=== PATIENT | female | born 1945 | race Caucasian/White ===

== ENCOUNTER → 2017-11-18 10:59 | Outpatient (CLI) | payer MEDICARE, OTHER, SELFPAY ==
[2017-11-18 12:14] LABS: AST(SGOT) 21 U/L (15-37); Alanine Aminotransfer ALT/SGPT 22 U/L (13-56); Albumin, Serum 3.8 g/dL (3.2-5.0); Alkaline Phosphatase 62 U/L (45-117); Bilirubin, Direct 0.18 mg/dL (0.00-0.30); Cholesterol 160 mg/dL (200); Globulin 3.5 g/dL (2.2-4.2); High Density Lipoprotein 73 mg/dL; Protein, Total 7.3 g/dL (6.4-8.2); Triglycerides 99 mg/dL; Very Low Density Lipoprotein 20 mg/dL (5-40)
== END ==
PROVIDERS: Family Provider Internal Medicine; PCP Internal Medicine; Visit Provider Internal Medicine Cardiovascular Disease
DX: I35.0 Nonrheumatic aortic (valve) stenosis (principal); I10 Essential (primary) hypertension
CPT/HCPCS: 36415; 80061; 80076

== ENCOUNTER → 2018-06-17 11:29 | Outpatient (CLI) | payer MEDICARE, OTHER, SELFPAY ==
--- NOTE | 2018-06-17 11:34 | RAD_ITS ---
STUDY: X-RAY - LUMBAR SPINE REASON FOR EXAM: Female, 72 years old. Low back pain. TECHNIQUE: 3 view(s) of the lumbar spine were obtained. COMPARISON: Radiographs of the lumbar spine dated February 20, 2014. FINDINGS: There is straightening of the normal lumbar lordosis. There is mild curvature of the lumbar spine with convexity towards the left. There is a normal alignment of the vertebrae. The bones are osteopenic. Patient has had a kyphoplasty of a compression fracture of L3. There appear to be mild compression fractures of L4, L5 and moderate compression fracture of L1. There are severe compression fracture of T12 with vertebral plana appearance. This is unchanged since the previous study. There is also mild compression fracture T11. There is multi-level degenerative disc disease with multi-level disc space narrowing. There is also vacuum disc phenomenon at several disc levels. There is moderately severe degenerative arthropathy of the facet joints of the lumbar spine. The patient has had a total right hip arthroplasty. The soft tissue structures are unremarkable. RAD/Lumbar Spine 2 or 3 Views IMPRESSION: 1. Osteoporosis. 2. Multiple compression fractures of the lumbar spine with kyphoplasty L3. 3. New compression fracture of L1 since previous radiographs. Electronically Signed: Laila Farley MD at 7:51 EDT , Service support ,
== END ==
PROVIDERS: Family Provider Internal Medicine; PCP Internal Medicine; Referring Provider Anesthesiology Pain Medicine; Visit Provider Anesthesiology Pain Medicine
DX: M54.9 Dorsalgia, unspecified (principal); M79.609 Pain in unspecified limb
CPT/HCPCS: 72100

== ENCOUNTER 2018-07-04 13:20 | Emergency (ER) | payer MEDICARE, OTHER, SELFPAY ==
[2018-07-04 13:21] VITALS: BP 166/91; PULSE 77; RESP 16; TEMP 36.9; O2SAT 98; BMI 37.9
--- NOTE | 2018-07-04 15:24 | ED.DCSUM_ITS ---
- ER Visit Summary Date of Service: 07/04/18 Chief Complaint: [Laceration right foot] History of Present Illness: The patient is a 72 F [presents the emergency department with a small laceration to her right foot that occurred last evening while she was shaving her legs. Patient states that initially she was able to get the bleeding stopped and this morning when she took the dressing off to continue to bleed. Patient presents to the ER for evaluation. Patient unsure of her last tetanus.] Physical Examination: [Right foot-patient has a punctate less than 2 mm laceration over the dorsal lateral aspect of the foot just inferior to the lateral malleolus that has minimal amount of blood oozing from it. The laceration is directly over a very small varicosity. Patient nervously intact. No signs of infection.] Test Results: [None indicated] Emergency Department Course and Treatment: [Patient had the wounds treated with silver nitrate stick to cauterize the small amount of bleeding. Good results were obtained and good hemostasis. Clean dressing was applied.] Treatment Plan: [Dressing will be applied. Follow-up with primary care physician as needed.] Disposition: Discharged home in stable condition [] Impression: [Laceration right foot-2 mm with silver nitrate cauterization] This note was generated with [employer] dictation software. It may contain incorrect words, spelling, and punctuation that were not noted in review of the chart prior to signing ED Disposition - Plan for ED Patient: Chief Complaint: Laceration Referrals: Hanna Rodriguez MD [Primary Care Provider] -
--- NOTE | 2018-07-04 15:24 | ED.DEP ---
ED Disposition - Plan for ED Patient: Chief Complaint: Laceration Instructions: ED Laceration Foot Referrals: Hanna Rodriguez MD [Primary Care Provider] - As Needed
[2018-07-04] MEDS: Diphth,Pertuss(Acell),Tet Vac 0.5 ML Vial IM (15:30)
[2018-07-04 15:46] VITALS: BP 122/94; PULSE 67; RESP 17; O2SAT 98
--- NOTE | 2018-07-04 15:46 | ED.RN ---
PATIENT AMBULATORY OUT OF ROOM WITHOUT DIFFICULTY, DECLINES WHEELCHAIR.
== END 2018-07-04 15:47 | disposition home or self-care (01) ==
LOC: ED 15:27
PROVIDERS: Emergency Provider Emergency Medicine; Family Provider Internal Medicine; PCP Internal Medicine
DX: S91.311A Laceration without foreign body, right foot, initial encounter (principal); I83.91 Asymptomatic varicose veins of right lower extremity; W45.8XXA Other foreign body or object entering through skin, initial encounter; Y93.E8 Activity, other personal hygiene; Y92.9 Unspecified place or not applicable; Y99.9 Unspecified external cause status; Z23 Encounter for immunization; E11.9 Type 2 diabetes mellitus without complications; I10 Essential (primary) hypertension; Z79.82 Long term (current) use of aspirin; Z79.899 Other long term (current) drug therapy
CPT/HCPCS: 12001; 90471; 90715; 99282; A4216

== ENCOUNTER → 2018-07-06 08:47 | Outpatient (CLI) | payer MEDICARE, OTHER, SELFPAY ==
--- NOTE | 2018-07-06 08:49 | ECHOD_ITS ---
Reason For Study: MURMUR Procedure This was a 2D Doppler, Color Flow transthoracic echocardiogram. Exam performed in department. Left Ventricle Normal LV size. Mild concentric left ventricular hypertrophy. Left ventricular systolic function is normal. The estimated ejection fraction is 60 %. No regional wall motion abnormalities noted. Atria The left atrium is mildly enlarged. The right atrium is mildly enlarged. Mitral Valve Normal mitral valve. Mild-Moderate (1-2+) eccentric mitral valve insufficiency. Tricuspid Valve Normal tricuspid valve. Mild (1+) tricuspid valve insufficiency. Pulmonary artery systolic pressure is 40 mmHg. Aortic Valve Trisinus/trileaflet aortic valve. Moderate focal aortic valve calcification. Peak aortic valve gradient 51 mmHg. Mean aortic valve gradient 39 mmHg. Moderate aortic stenosis. Calculated aortic valve area (continuity equation) is 1.1 cm2. Mild (1+) eccentric aortic valve insufficiency. Pulmonic Valve Normal pulmonic valve. Great Vessels Mildly dilated aortic root. The pulmonary artery is normal size. Normal inferior vena cava. Pericardium/Pleural No pericardial effusion. MMode/2D Measurements & Calculations LVIDd: 5.3 cm IVSd: 1.4 cm LVOT diam: 2.2 cm LVIDs: 3.3 cm LVPWd: 1.4 cm LVOT area: 3.7 cm2 RVDd: 3.4 cm FS: 38.0 % Ao root diam: 4.0 cm LAV(MOD-sp4): 76.1 ml LA A4 area: 22.9 cm2 RA A4 area: 24.5 cm2 Doppler Measurements & Calculations MV E max gopi: 119.1 cm/sec Lat Peak E' Gopi: 10.5 cm/sec Med Peak E' Gopi: 6.4 cm/sec MV A max gopi: 101.9 cm/sec E/E' lat: 11.3 E/E' med: 18.6 MV E/A: 1.2 Ao V2 max: 340.9 cm/sec AI max gopi: 438.0 cm/sec LV V1 max: 115.4 cm/sec Ao max P.5 mmHg AI max P.8 mmHg LV V1 max P.3 mmHg Ao V2 mean: 303.0 cm/sec AI dec slope: 294.0 cm/sec2 LV V1 mean P.4 mmHg Ao mean P.2 mmHg AI P1/2t: 436.4 msec LV V1 mean: 89.8 cm/sec Ao V2 VTI: 91.9 cm LV V1 VTI: 28.3 cm LAVONNE(I,D): 1.1 cm2 LAVONNE(V,D): 1.2 cm2 SV(LVOT): 103.6 ml PA V2 max: 96.5 cm/sec TR max gopi: 294.9 cm/sec TR max P.8 mmHg Interpretation Summary Normal LV size. Mild concentric left ventricular hypertrophy. Left ventricular systolic function is normal. The estimated ejection fraction is 60 %. The left atrium is mildly enlarged. Mild-Moderate (1-2+) eccentric mitral valve insufficiency. Moderate aortic stenosis. Calculated aortic valve area (continuity equation) is 1.1 cm2. Mild (1+) eccentric aortic valve insufficiency. Compared to prior study, there is no significant change. Ordering Physician: Krzysztof Bianchi Referring Physician: Hanna Rodriguez Performed By: Theresa Michelle RDCS, RVT
== END ==
PROVIDERS: Family Provider Internal Medicine; PCP Internal Medicine; Referring Provider Internal Medicine Cardiovascular Disease; Visit Provider Internal Medicine Cardiovascular Disease
DX: R01.1 Cardiac murmur, unspecified (principal); Z98.890 Other specified postprocedural states
CPT/HCPCS: 93306

== ENCOUNTER → 2018-07-15 15:54 | Outpatient (CLI) | payer MEDICARE, OTHER, SELFPAY ==
[2018-07-15 17:34] LABS: Amphetamine Urine VISTA NEGATIVE (<1000 ng/mL); Barbiturate Urine VISTA NEGATIVE (< 200 ng/mL); Benzodiazepine Urine VISTA NEGATIVE (< 200 ng/mL); Cocaine Urine VISTA NEGATIVE (< 300 ng/mL); Ecstacy Urine VISTA NEGATIVE (< 500 ng/mL); Methadone Urine VISTA NEGATIVE (< 300 ng/mL); PCP Urine VISTA NEGATIVE (< 25 ng/mL); THC Urine VISTA NEGATIVE (< 50 ng/mL); Vista UDS pH Range 6
== END ==
PROVIDERS: Family Provider Internal Medicine; PCP Internal Medicine; Referring Provider Anesthesiology Pain Medicine; Visit Provider Anesthesiology Pain Medicine
DX: F11.20 Opioid dependence, uncomplicated (principal)
CPT/HCPCS: 80307

== ENCOUNTER → 2020-04-21 08:49 | Outpatient (CLI) | payer MEDICARE, SELFPAY ==
[2020-03-30 10:42] VITALS: BMI 37.8
--- NOTE | 2020-04-21 08:50 | ECHOD_ITS ---
Reason For Study: Murmur Procedure This was a 2D Doppler, Color Flow transthoracic echocardiogram. Exam performed in department. Left Ventricle Normal LV size. Moderate concentric left ventricular hypertrophy. Left ventricular systolic function is normal. The estimated ejection fraction is 60 %. Stage 2 diastolic dysfunction. No regional wall motion abnormalities noted. Right Ventricle Normal RV size. Normal systolic function. Atria Normal left atrium. Normal right atrium. Mitral Valve Bileaflet diffuse mitral valve thickening. Mild-Moderate (1-2+) eccentric mitral valve insufficiency. Tricuspid Valve Normal tricuspid valve. Mild to moderate (1-2+) tricuspid valve insufficiency. Pulmonary artery systolic pressure is 50 mmHg. Aortic Valve Trisinus/trileaflet aortic valve. Moderate focal aortic valve calcification. Peak aortic valve gradient 70 mmHg. Mean aortic valve gradient 38 mmHg. Calculated aortic valve area (continuity equation) is 0.7 cm2. Severe aortic stenosis. Mild (1+) eccentric aortic valve insufficiency. Pulmonic Valve Normal pulmonic valve. Great Vessels Normal aortic root. The pulmonary artery is normal size. Normal inferior vena cava. Pericardium/Pleural No pericardial effusion. MMode/2D Measurements & Calculations LVIDd: 4.9 cm IVSd: 1.8 cm LVOT diam: 2.0 cm LVIDs: 3.0 cm LVPWd: 1.2 cm LVOT area: 3.2 cm2 RVDd: 4.4 cm FS: 39.1 % Ao root diam: 3.9 cm LAV(MOD-bp): 69.2 ml LA A4 area: 19.5 cm2 LA dimension: 4.1 cm LAV(MOD-bp) Indexed: 33.2 ml/m2 LAV(MOD-sp2): 75.2 ml LAV(MOD-sp4): 56.6 ml RA A4 area: 20.6 cm2 Time Measurements MV dec time: 0.26 sec Doppler Measurements & Calculations MV E max gopi: 114.7 cm/sec Lat Peak E' Gopi: 9.9 cm/sec Med Peak E' Gopi: 5.3 cm/sec MV A max gopi: 73.8 cm/sec E/E' lat: 11.6 E/E' med: 21.7 MV E/A: 1.6 MV V2 max: 130.5 cm/sec MV P1/2t max gopi: 129.4 cm/sec Ao V2 max: 419.3 cm/sec MV max P.8 mmHg MV P1/2t: 82.0 msec Ao max P.3 mmHg MV V2 mean: 73.5 cm/sec MV dec slope: 462.0 cm/sec2 Ao V2 mean: 287.3 cm/sec MV mean P.5 mmHg Ao mean P.9 mmHg MV V2 VTI: 34.7 cm MVA(P1/2t): 2.7 cm2 Ao V2 VTI: 97.8 cm MVA(VTI): 2.6 cm2 LAVONNE(I,D): 0.92 cm2 LAVONNE(V,D): 0.71 cm2 AI max gopi: 239.7 cm/sec LV V1 max: 93.6 cm/sec MR max gopi: 669.0 cm/sec AI max P.0 mmHg LV V1 max P.5 mmHg MR max P.0 mmHg LV V1 mean P.0 mmHg MR mean gopi: 477.7 cm/sec AI dec slope: 162.2 cm/sec2 LV V1 mean: 68.7 cm/sec MR mean P.9 mmHg AI P1/2t: 432.8 msec LV V1 VTI: 28.1 cm MR VTI: 237.3 cm SV(LVOT): 89.8 ml PA V2 max: 82.8 cm/sec TR max gopi: 337.1 cm/sec TR max P.4 mmHg Interpretation Summary Normal LV size. Moderate concentric left ventricular hypertrophy. Left ventricular systolic function is normal. The estimated ejection fraction is 60 %. Stage 2 diastolic dysfunction. Mean aortic valve gradient 38 mmHg. Calculated aortic valve area (continuity equation) is 0.7 cm2. Severe aortic stenosis. Compared to the previous the is worse Ordering Physician: Krzysztof Bianchi Referring Physician: Hanna Rodriguez Performed By: Rober Charles RCS
== END ==
PROVIDERS: PCP Internal Medicine; Referring Provider Internal Medicine Cardiovascular Disease; Visit Provider Internal Medicine Cardiovascular Disease
DX: I35.2 Nonrheumatic aortic (valve) stenosis with insufficiency (principal); R01.1 Cardiac murmur, unspecified
CPT/HCPCS: 93306

== ENCOUNTER → 2020-04-26 08:39 | Outpatient (CLI) | payer MEDICARE, SELFPAY ==
[2020-03-30 10:42] VITALS: BMI 37.8
--- NOTE | 2020-04-26 09:00 | RAD_ITS ---
STUDY: X-RAY CHEST REASON FOR EXAM: Female, 74 years old. Dyspnea TECHNIQUE: Frontal and lateral views of the chest COMPARISON: 02/27/15 FINDINGS: The lungs are clear. There are no pleural effusions. There is no pneumothorax. The heart is normal in size. The visualized osseous structures are within normal limits. RAD/Chest PA and Lateral IMPRESSION: No acute thoracic pathology. Electronically Signed: Jerad Andino, at 17:02 EDT Tel , Service support ,
[2020-04-26 09:26] LABS: Absolute Lymphocyte Count 1.19 X10^3/uL (0.83-4.51); Absolute Neutrophil Count 2.3 X10^3/uL (2.0-7.7); Basophil# 0.04 X10^3/uL; Eosinophil# 0.08 X10^3/uL; Hemoglobin 12.6 g/dL (12.0-15.0); Lymphocyte # 1.19 X10^3/ul (4.0); Lymphocyte % 29.4 % (19-41); Mean Corpuscular Hgb 34.4 pg (27.0-32.0); Mean Corpuscular Volume 98.4 fL (81-99); Mean Platelet Vol. 9.5 fl (6.2-12.0); Monocyte# 0.48 X10^3/uL; Monocyte% 11.9 % (0-10); NRBC Flagged by Analyzer 0 % (0-5); Neutrophil # 2.25 X10^3/uL (2.7-7.7); Neutrophil % 55.5 % (47-70); Platelet Count 186 K/mm3 (150-450); RBC Distribution Width CV 12.9 % (11.6-14.6); Red Blood Count 3.66 M/mm3 (4.2-5.4); White Blood Count 4.1 K/mm3 (4.4-11.0)
[2020-04-26 09:50] LABS: Anion Gap 5 (5-15); BUN 15 mg/dL (7-18); BUN/Creat Ratio 19.3 RATIO (10-20); Calcium,Total 9.1 mg/dL (8.5-10.1); Chloride 102 mmol/L (98-107); Creatinine, Serum 0.78 mg/dL (0.55-1.02); EST Glomerular Filtration Rate 78 mL/min (>60); Est Glom Filt Rate - Afr Amer 94 mL/min (>60); Glucose 90 mg/dL (74-106); Potassium 3.6 mmol/L (3.5-5.1); Sodium Level 138 mmol/L (136-145)
== END ==
PROVIDERS: PCP Internal Medicine; Referring Provider Internal Medicine Cardiovascular Disease; Visit Provider Internal Medicine Cardiovascular Disease
DX: I49.3 Ventricular premature depolarization (principal); E78.5 Hyperlipidemia, unspecified; I10 Essential (primary) hypertension; I35.2 Nonrheumatic aortic (valve) stenosis with insufficiency
CPT/HCPCS: 36415; 71046; 80048; 85025

== ENCOUNTER 2020-05-01 08:47 | Day surgery (SDC) | payer MEDICARE, SELFPAY ==
[2020-03-30 10:42] VITALS: BMI 37.8
[2020-04-28 08:37] VITALS: BMI 37.8
--- NOTE | 2020-05-01 08:01 | HP_ITS ---
[facility] History of Present Illness Details: RAFIA SANCHEZ, is a 74 F who presents to the office today for a follow- up visit. You do remember that she lost her approximately 7 months ago and is still grieving. She is a lady with a history of hypertension, normal coronary arteries, moderate aortic stenosis with a valve area of 1.1 cm?. She last had an echocardiogram performed in June 2018 and was noted to have an ejection fraction of 60% and a peak mean gradient of 51 and 39 mmHg respectively across the aortic valve. She returns for routine follow-up visit she denies any chest pain or shortness of breath or paroxysmal nocturnal dyspnea pedal edema. She has not had any neck arm or jaw discomfort to suggest angina. She has not had any claudication as well. You do remember she continues to have discoloration of her feet. Her physical exam today demonstrates clear lung pardo regular rate and rhythm a 2/6 systolic murmur noted left sternal border and no pedal edema. Intake Vital Signs 03/30/20 Height 5 ft 5 in 03/30/20 Weight: 227 lb 03/30/20 BMI 37.8 03/30/20 BP 150/87 H 03/30/20 Respiration 16 03/30/20 Pulse 68 03/30/20 Pulse Oximetry (%) 100 03/30/20 BMI 37.5 Intake Visit Reasons: 9 M FU Allergies captopril [From Capoten] Allergy (Verified 03/30/20 10:42) Unknown diclofenac Allergy (Verified 03/30/20 10:42) Unknown naproxen Adverse Reaction (Verified 03/30/20 10:42) Nausea Medications Hydrochlorothiazide 25 mg PO DAILY 02/20/14 [History Confirmed 03/30/20] Multivitamins,Therapeutic [Multivitamin] 1 tab PO DAILY 02/20/14 [History Confirmed 03/30/20] Aspirin [Aspirin, Baby] 81 mg PO DAILY@0800 02/27/15 [History Confirmed 03/30/20] Atorvastatin Calcium [Lipitor] 20 mg PO QHS 02/27/15 [History Confirmed 03/30/20] Cholecalciferol (VIT D3) [Vitamin D] 1,000 unit PO BID 02/27/15 [History Confirmed 03/30/20] Cyanocobalamin [Vitamin B12] 250 mcg PO DAILY@0800 02/27/15 [History Confirmed 03/30/20] Omeprazole [Prilosec] 20 mg PO DAILY 02/27/15 [History Confirmed 03/30/20] Lactobacillus Rhamnosus GG [Culturelle] 1 ea PO DAILY 03/13/15 [History Confirmed 03/30/20] traMADol [Ultram (G)] 50 mg PO Q12H PRN PRN 03/13/15 [History Confirmed 03/30/20] Metoprolol Succinate 25 mg PO BID 03/21/17 [History Confirmed 03/30/20] Potassium Chloride [K-Dur] 10 meq PO DAILY #30 tab 04/30/17 [Rx Confirmed 03/30/20] hydrochlorothiazide 12.5 mg tablet 12.5 mg PO DAILY 07/15/19 [History Confirmed 03/30/20] losartan 50 mg tablet 50 mg PO BID tab 07/15/19 [History Confirmed 03/30/20] Ejection fraction %: 60 to 64 PFSH Medical History Nonrheumatic aortic (valve) stenosis with insufficiency (Chronic) Essential (primary) hypertension (Chronic) Hyperlipidemia (Chronic) Premature ventricular contractions (Chronic) Obesity (Chronic) Obstructive sleep apnea (Chronic) Peripheral vascular occlusive disease (Chronic) Stasis dermatitis without varicosities (Chronic) Cellulitis of leg without foot, left (Resolved) Abnormal electrocardiogram (Inactive) Surgical History History of D&C (Resolved) History of hand surgery (Resolved) History of left heart catheterization (Resolved 03/14/15) History of right hip replacement (Resolved) History of tubal ligation (Resolved) Family History Father CVA (cerebral vascular accident) Hypertension Atrial fibrillation Congestive heart failure Mother , in her 90's, pt of Dr. Bianchi Hypertension CVA (cerebral vascular accident) Atrial fibrillation Congestive heart failure Brother , age 60 Atrial fibrillation Congestive heart failure Colon cancer Sister CAD (coronary artery disease) Sister , age 65 CAD (coronary artery disease) Hypertension S/P CABG (coronary artery bypass graft) History of heart valve replacement Sister Atrial fibrillation Other Family history of CVA Family history of hyperlipidemia Family history of hypertension Social History (Updated 03/30/20 @ 11:[address] Krzysztof Bianchi MD) Smoking Status: Never smoker alcohol intake: current caffeine: Yes Type: carbonated beverages Number of servings: 1 ROS Const Const: Negative for fatigue, weakness, headache(s), frequent falls, difficulty sleeping or excessive sweating Eyes Eyes: Negative for loss of peripheral vision, transient loss of vision, blurry vision, double vision or tunnel vision ENT ENT: Negative for headache(s), dizziness, Nosebleed/epistaxis or balance problems Cardio Chest Pain: No Palpitations: No Edema: None Muscle aches with walking: None Resp Respiratory: Negative for SOB with activity, SOB at rest, SOB orthopnea\SOB lying down, Cough or paroxysmal nocturnal dyspnea GI GI: Negative nausea, vomiting, heartburn or black,tarry stools : Negative for hematuria Musc Musc: Negative for muscle aches/ myalgia, muscle weakness, joint pain or balance problems Skin Skin: Negative non-healing lesions, rash or unusual bruising Neuro Neuro: Positive for lightheadedness (occasionally when moving to quick); negative for dizziness, near syncope, syncope, orthostatic symptoms, frequent falls, headache(s), weakness, blurry vision, double vision or lack of coordination Andrea Hematologic/Lymphatic: Negative for easy bleeding or easy bruising Endo Endo: Negative for fatigue, excessive sweating or increased thirst/drinking Psych Psych: Positive for depression (Has episodes, was in a grief class); negative for anxiety Allergy Allergy/Immunology: Negative for hives, Negative for rash Cardiology Exam Const Appearance: cooperative, healthy appearing, no acute distress, well developed and well groomed Nutritional Appearance: average body habitus and well nourished Orientation: alert, awake and oriented x3 Head Head: normal to inspection, normocephalic and atraumatic Ears: hearing grossly normal bilaterally and external ears normal Nose: external nose normal, nares normal, nasal mucous membranes and turbinates normal, septum normal, no nasal discharge Face and Sinus: face symmetric Mouth: oral mucosae normal, tongue normal, oropharynx normal and moist mucous membranes Teeth and gingiva: dentition normal Throat: posterior oropharynx normal, tonsils normal and uvula midline Eyes General: appearance normal, both eyes and all related structures Eyelids: eyelids normal Conjunctivae: conjunctivae normal Pupils: PERRL, normal by confrontation and accommodation normal EOM: EOM intact bilaterally Neck Neck: normal visual inspection, trachea midline and no JVD JVD: +5 Carotids: normal carotid upstroke and bounding pulses Chest Chest inspection: normal inspection of the chest, symmetric chest movement and normal respiratory effort Auscultation: Bilateral: Clear to Auscultation Cardio Palpation: normal PMI Rate: regular rate Rhythm: regular rhythm Heart sounds: S1 normal, S2 normal and normal, physiologic split S2; negative rub, gallop or murmur Murmur: Grade 2/6, early systolic and LLSB GI GI: normal to inspection, soft, no hepatosplenomegaly and bowel sounds present Neuro General: alert, awake, oriented x3, gait normal, moves all extremities and no focal sensory deficit Skin Skin: no rashes or lesions noted Extremities Pulses: Normal: Right Femoral Pulse, Left Femoral Pulse, Right Dorsalis Pedis Pulse, Left Dorsalis Pedis Pulse, Right Posterior Tibial Pulse, Left Posterior Tibial Pulse, Right Radial Pulse, Left Radial Pulse Lower Extremity Edema: None: Bilateral Musculoskel Musculoskeletal: No joint tenderness Psych Psychological: normal affect Assessment & Plan 1. Nonrheumatic aortic (valve) stenosis with insufficiency I35.2 Plan She does have at least moderate aortic stenosis. I would like us to repeat her echocardiogram at this time to be able to see what her gradients are. I have talked to her about a possible TAVR if her gradients are significant and she will be interested in the above. Orders Orders: Echo Complete Today 2. Essential (primary) hypertension I10 Plan Her blood pressure is mildly elevated at this time but with her aortic valve I would like to keep her medications the same without making any changes. She tells me that she had some blood work done through your office and you be following her electrolytes. 3. Pure hypercholesterolemia E78.00 Plan She does have a history of hyperlipidemia. She is on medium intensity statin which will be continued. No other changes will be made. Thank you for allowing me to participate in her care. 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) Coding Level of Care Code Off vis,est,level 3 Diagnoses Nonrheumatic aortic (valve) stenosis with insufficiency I35.2 Essential (primary) hypertension I10 Pure hypercholesterolemia E78.00 ??Hyperlipidemia type: pure hypercholesterolemia Coding Level of Care Code Off vis,est,level 3 Diagnoses Nonrheumatic aortic (valve) stenosis with insufficiency I35.2 Essential (primary) hypertension I10 Pure hypercholesterolemia E78.00 ??Hyperlipidemia type: pure hypercholesterolemia Supplemental Info Supplemental Information Labs LDL Cholesterol 67 mg/dL (0-130) 11/18/17 HDL Cholesterol 73 mg/dL (40-) 11/18/17 Triglycerides 99 mg/dL (-199) 11/18/17 VLDL Cholesterol 20 mg/dL (5-40) 11/18/17 Diagnostics Electrocardiogram 04/30/17 Echocardiogram 07/06/18
--- NOTE | 2020-05-01 10:04 | CL.D_ITS ---
Patient Name: RAFIA SANCHEZ Study Date: 05/01/2020 Performing: Krzysztof Bianchi MD Ht: 65 inches 165 cm : 1945 Wt: 227.4 lbs 103 kg Age: 74 Gender: female BSA: 2.09 PROCEDURE(S) PERFORMED [id number] CLINICAL PROFILE AND INDICATIONS Indications: Valvular Disease Heart Failure: None Stress/Imaging Stress/Image Study Performed: No CAD Presentations: No Sxs, no angina. No Sxs, no angina. CONCLUSIONS Normal coronary arteries There is severe aortic stenosis, normal coronary arteries, and upper normal pulmonary artery pressure s by echocardiogram. RECOMMENDATIONS Surgery consult for Valve Replacement surgery For TAVR DESCRIPTION OF PROCEDURE The patient arrived to the procedure lab. The risks and benefits of the procedure as well as a full d escription of our services here and current unavailability of surgical backup were fully explained to the patient and/or their significant other prior to the catheterization. The Timeout was completed, verifying the correct patient and procedure. The patient's procedural site was prepped and draped in the usual fashion. Local anesthetic was given subcutaneously to right radial region with Lidocaine 2% . Using a modified Seldinger technique, arterial access was obtained via the right radial artery, a 6 Fr sheath was inserted. Left Coronary Artery selective angiography was performed in multiple views u sing a 5 Fr. 4.0 [place] catheter. Right Coronary Artery selective angiography was then performed in mu ltiple views using a 5 Fr. 4.0 [place] catheter.The arterial sheath was pulled and a TR Band was applie d for hemostasis 11cc air CORONARY ANGIOGRAPHY DOMINANCE: Co- Dominant LEFT HEART ASSESSMENT Left Ventricular Ejection Fraction: by Echo 60 % Normal LV wall motion Normal Left Ventricular systolic function LEFT MAIN: Angiographically normal LEFT ANTERIOR DESCENDING ARTERY: Angiographically normal CIRCUMFLEX ARTERY: Angiographically normal RIGHT CORONARY ARTERY: Angiographically normal VALVE FINDINGS: Aortic Valve Calcification - severe Aortic Valve Stenosis - severe Aortic Valve Insufficiency: Grade 1 COMPLICATIONS No Complications PROCEDURE MEDICATIONS Fentanyl 50 mcg IV Versed 1 mg IV Versed 1 mg IV Oxygen: 2 L/min via nasal cannula Heparin diluted in 23cc Heparinized saline. Patient given 10cc IA of this solution. 05/01/2020 09:43: 34 Verapamil 2.5mg, Ntg 100mcgs, 2000 units of Heparin diluted in 23cc Heparinized saline. Patient give n 10cc IA of this solution. 05/01/2020 09:43:34 SUMMARY OF HEMODYNAMIC DATA Time AIR REST ECG 09:13:55 AO 149/85 (111) SA 09:45:39 Signed By Krzysztof Bianchi MD On 05/01/2020 10:03:47 Krzysztof Bianchi MD
== END 2020-05-01 11:40 | disposition home or self-care (01) ==
LOC: CLSP 08:47
PROVIDERS: PCP Internal Medicine; Referring Provider Internal Medicine Cardiovascular Disease; Visit Provider Internal Medicine Cardiovascular Disease
DX: I35.2 Nonrheumatic aortic (valve) stenosis with insufficiency (principal); I25.118 Atherosclerotic heart disease of native coronary artery with other forms of angina pectoris; I10 Essential (primary) hypertension; G47.33 Obstructive sleep apnea (adult) (pediatric); E78.5 Hyperlipidemia, unspecified; E66.9 Obesity, unspecified; R01.1 Cardiac murmur, unspecified; I49.3 Ventricular premature depolarization; I73.9 Peripheral vascular disease, unspecified; I99.8 Other disorder of circulatory system; R94.31 Abnormal electrocardiogram [ECG] [EKG]; I87.2 Venous insufficiency (chronic) (peripheral); R42 Dizziness and giddiness; F32.9 Major depressive disorder, single episode, unspecified; Z79.899 Other long term (current) drug therapy; Z79.82 Long term (current) use of aspirin; Z68.37 Body mass index [BMI] 37.0-37.9, adult; Z82.49 Family history of ischemic heart disease and other diseases of the circulatory system
CPT/HCPCS: 93005; 93454; 99152; 99153; J7040; Q9967; C1769; C1894

== ENCOUNTER → 2020-05-10 10:21 | Outpatient (CLI) | payer MEDICARE, SELFPAY ==
[2020-04-28 08:37] VITALS: BMI 37.8
[2020-05-10 11:44] LABS: Amphetamine Urine VISTA NEGATIVE (<1000 ng/mL); Barbiturate Urine VISTA NEGATIVE (< 200 ng/mL); Benzodiazepine Urine VISTA NEGATIVE (< 200 ng/mL); Cocaine Urine VISTA NEGATIVE (< 300 ng/mL); Ecstacy Urine VISTA NEGATIVE (< 500 ng/mL); Methadone Urine VISTA NEGATIVE (< 300 ng/mL); PCP Urine VISTA NEGATIVE (< 25 ng/mL); THC Urine VISTA NEGATIVE (< 50 ng/mL); Vista UDS pH Range 7
== END ==
PROVIDERS: PCP Internal Medicine; Referring Provider Anesthesiology Pain Medicine; Visit Provider Anesthesiology Pain Medicine
DX: F11.20 Opioid dependence, uncomplicated (principal)
CPT/HCPCS: 80307

== ENCOUNTER → 2020-05-18 10:49 | Outpatient (CLI) | payer MEDICARE, SELFPAY ==
[2020-04-28 08:37] VITALS: BMI 37.8
[2020-05-18 12:01] LABS: EST Glomerular Filtration Rate 87 mL/min (>60); Est Glom Filt Rate - Afr Amer 106 mL/min (>60)
== END ==
PROVIDERS: PCP Internal Medicine; Referring Provider Internal Medicine Cardiovascular Disease; Visit Provider Internal Medicine Cardiovascular Disease
DX: I11.9 Hypertensive heart disease without heart failure (principal); I27.21 Secondary pulmonary arterial hypertension; I35.2 Nonrheumatic aortic (valve) stenosis with insufficiency; I49.3 Ventricular premature depolarization; E78.5 Hyperlipidemia, unspecified
CPT/HCPCS: 36415; 82565

== ENCOUNTER → 2020-09-27 10:54 | Outpatient (CLI) | payer MEDICARE, SELFPAY ==
[2020-04-28 08:37] VITALS: BMI 37.8
== END ==
PROVIDERS: PCP Internal Medicine; Referring Provider Physician Assistant Medical; Visit Provider Physician Assistant Medical
DX: I97.89 Other postprocedural complications and disorders of the circulatory system, not elsewhere classified (principal); I49.3 Ventricular premature depolarization; Z95.3 Presence of xenogenic heart valve
CPT/HCPCS: 93225; 93226

== ENCOUNTER → 2020-10-20 11:25 | Outpatient (CLI) | payer MEDICARE, SELFPAY ==
[2020-10-20 08:11] VITALS: BMI 37.8
[2020-10-20 12:07] LABS: Anion Gap 5 (5-15); BUN 22 mg/dL (7-18); BUN/Creat Ratio 25.3 RATIO (10-20); Calcium,Total 8.9 mg/dL (8.5-10.1); Chloride 107 mmol/L (98-107); Creatinine, Serum 0.87 mg/dL (0.55-1.02); EST Glomerular Filtration Rate 68 mL/min (>60); Est Glom Filt Rate - Afr Amer 82 mL/min (>60); Glucose 86 mg/dL (74-106); Potassium 3.7 mmol/L (3.5-5.1); Sodium Level 140 mmol/L (136-145)
== END ==
PROVIDERS: PCP Internal Medicine; Referring Provider Internal Medicine Cardiovascular Disease; Visit Provider Internal Medicine Cardiovascular Disease
DX: I10 Essential (primary) hypertension (principal); E78.5 Hyperlipidemia, unspecified; I35.2 Nonrheumatic aortic (valve) stenosis with insufficiency; Z95.3 Presence of xenogenic heart valve
CPT/HCPCS: 36415; 80048

== ENCOUNTER 2020-11-08 10:19 | Day surgery (SDC) | payer MEDICARE, SELFPAY ==
[2020-10-20 08:11] VITALS: BMI 37.8
[2020-11-02 10:52] VITALS: BMI 37.8
--- NOTE | 2020-11-08 06:02 | HP_ITS ---
[facility] History of Present Illness Details: RAFIA SANCHEZ, is a 74 F who presents to the office today for a follow- up visit. She is a lady with a history of hypertension aortic valve disease who underwent cardiac catheterization and repeat echocardiogram which demonstrated severe aortic valve stenosis. She underwent a TAVR procedure in May 2020. Postoperatively she was noted to have atrial fibrillation and was started on amiodarone and Eliquis. She had a Holter monitor performed in September of this year which demonstrated 70% atrial fibrillation episodes with an average heart rate of 103 bpm. Her amiodarone and metoprolol were increased. Her last post TAVR echocardiogram had demonstrated preserved ejection fraction of 68%. She feels well though she has noted the irregularities in her heart rate. She has been compliant with her medications. She has had no dizziness or diaphoresis no near syncope or syncope. Her physical exam demonstrates clear lung pardo irregular rate and rhythm and no pedal edema. Intake Vital Signs 10/20/20 Height 5 ft 5 in 10/20/20 Weight: 227 lb 10/20/20 BMI 37.8 10/20/20 BP 156/87 H 10/20/20 Respiration 18 10/20/20 Pulse 102 H 10/20/20 Pulse Oximetry (%) 100 Intake Visit Reasons: 6 M FU Allergies captopril [From Capoten] Allergy (Verified 10/20/20 08:11) Unknown diclofenac Allergy (Verified 10/20/20 08:11) Unknown naproxen Adverse Reaction (Verified 10/20/20 08:11) Nausea Medications Hydrochlorothiazide 25 mg PO DAILY 02/20/14 [History Confirmed 10/20/20] Multivitamins,Therapeutic [Multivitamin] 1 tab PO DAILY 02/20/14 [History Confirmed 10/20/20] Aspirin [Aspirin, Baby] 81 mg PO DAILY@0800 02/27/15 [History Confirmed 10/20/20] Atorvastatin Calcium [Lipitor] 20 mg PO QHS 02/27/15 [History Confirmed 10/20/20] Cholecalciferol (VIT D3) [Vitamin D] 1,000 unit PO BID 02/27/15 [History Confirmed 10/20/20] Cyanocobalamin [Vitamin B12] 250 mcg PO DAILY@0800 02/27/15 [History Confirmed 10/20/20] Omeprazole [Prilosec] 20 mg PO DAILY 02/27/15 [History Confirmed 10/20/20] Lactobacillus Rhamnosus GG [Culturelle] 1 ea PO DAILY 03/13/15 [History Confirmed 10/20/20] traMADol [Ultram (G)] 50 mg PO Q12H PRN PRN 03/13/15 [History Confirmed 10/20/20] Potassium Chloride [K-Dur] 10 meq PO DAILY #30 tab 04/30/17 [Rx Confirmed 10/20/20] apixaban 5 mg tablet 5 mg PO BID 09/13/20 [History Confirmed 10/20/20] losartan 50 mg tablet 50 mg PO DAILY tab 09/13/20 [History Confirmed 10/20/20] nitrofurantoin monohydrate/macrocrystals 100 mg capsule 100 mg PO BID 09/13/20 [History Confirmed 10/20/20] amiodarone 200 mg tablet 200 mg PO DAILY #37 tab 09/28/20 [Rx Confirmed 10/20/20] metoprolol tartrate 50 mg tablet 50 mg PO BID #180 tab 09/28/20 [Rx Confirmed 10/20/20] Ejection fraction %: 65 to 70 PFSH Medical History Postoperative atrial fibrillation (Chronic 06/05/20) Nonrheumatic aortic (valve) stenosis with insufficiency (Chronic) Essential (primary) hypertension (Chronic) Hyperlipidemia (Chronic) Premature ventricular contractions (Chronic) Obesity (Chronic) Obstructive sleep apnea (Chronic) Peripheral vascular occlusive disease (Chronic) Stasis dermatitis without varicosities (Chronic) Cellulitis of leg without foot, left (Resolved) Left ventricular diastolic dysfunction (Resolved) Secondary pulmonary arterial hypertension (Resolved) Abnormal electrocardiogram (Inactive) Surgical History History of aortic valve replacement with bioprosthetic valve (Chronic 06/05/20) History of D&C (Resolved) History of hand surgery (Resolved) History of left heart catheterization (Resolved 05/01/20) History of right hip replacement (Resolved) History of tubal ligation (Resolved) Family History Father CVA (cerebral vascular accident) Hypertension Atrial fibrillation Congestive heart failure Mother , in her 90's, pt of Dr. Bianchi Hypertension CVA (cerebral vascular accident) Atrial fibrillation Congestive heart failure Brother , age 60 Atrial fibrillation Congestive heart failure Colon cancer Sister CAD (coronary artery disease) Sister , age 65 CAD (coronary artery disease) Hypertension S/P CABG (coronary artery bypass graft) History of heart valve replacement Sister Atrial fibrillation Other Family history of CVA Family history of hyperlipidemia Family history of hypertension Social History (Updated 10/20/20 @ 11:[address] Krzysztof Bianchi MD) Smoking Status: Never smoker alcohol intake: current caffeine: Yes Type: carbonated beverages Number of servings: 1 ROS Const Const: Negative for fatigue, weakness, headache(s), frequent falls, difficulty sleeping or excessive sweating Eyes Eyes: Negative for loss of peripheral vision, transient loss of vision, blurry vision, double vision or tunnel vision ENT ENT: Negative for headache(s), dizziness, Nosebleed/epistaxis or balance problems Cardio Chest Pain: No Palpitations: No Edema: None Muscle aches with walking: None Resp Respiratory: Positive for SOB with activity; negative for SOB at rest, SOB orthopnea\SOB lying down, Cough or paroxysmal nocturnal dyspnea GI GI: Negative nausea, vomiting, heartburn or black,tarry stools : Negative for hematuria Musc Musc: Negative for muscle aches/ myalgia, muscle weakness, joint pain or balance problems Skin Skin: Negative non-healing lesions, rash or unusual bruising Neuro Neuro: Negative for dizziness, lightheadedness, near syncope, syncope, orthostatic symptoms, frequent falls, headache(s), weakness, blurry vision, double vision or lack of coordination Andrea Hematologic/Lymphatic: Negative for easy bleeding or easy bruising Endo Endo: Negative for fatigue, excessive sweating or increased thirst/drinking Psych Psych: Negative for anxiety or depression Allergy Allergy/Immunology: Negative for hives, Negative for rash Cardiology Exam Const Appearance: cooperative, healthy appearing, no acute distress, well developed and well groomed Nutritional Appearance: average body habitus and well nourished Orientation: alert, awake and oriented x3 Head Head: normal to inspection, normocephalic and atraumatic Ears: hearing grossly normal bilaterally and external ears normal Nose: external nose normal, nares normal, nasal mucous membranes and turbinates normal, septum normal, no nasal discharge Face and Sinus: face symmetric Mouth: oral mucosae normal, tongue normal, oropharynx normal and moist mucous membranes Teeth and gingiva: dentition normal Throat: posterior oropharynx normal, tonsils normal and uvula midline Eyes General: appearance normal, both eyes and all related structures Eyelids: eyelids normal Conjunctivae: conjunctivae normal Pupils: PERRL, normal by confrontation and accommodation normal EOM: EOM intact bilaterally Neck Neck: normal visual inspection, trachea midline and no JVD JVD: +5 Carotids: normal carotid upstroke and bounding pulses Chest Chest inspection: normal inspection of the chest, symmetric chest movement and normal respiratory effort Auscultation: Bilateral: Clear to Auscultation Cardio Palpation: normal PMI Rate: regular rate Rhythm: irregular rhythm Heart sounds: S1 normal, S2 normal and normal, physiologic split S2; negative rub, gallop or murmur GI GI: normal to inspection, soft, no hepatosplenomegaly and bowel sounds present Neuro General: alert, awake, oriented x3, gait normal, moves all extremities and no focal sensory deficit Skin Skin: no rashes or lesions noted Extremities Pulses: Normal: Right Femoral Pulse, Left Femoral Pulse, Right Dorsalis Pedis Pulse, Left Dorsalis Pedis Pulse, Right Posterior Tibial Pulse, Left Posterior Tibial Pulse, Right Radial Pulse, Left Radial Pulse Lower Extremity Edema: None: Bilateral Musculoskel Musculoskeletal: No joint tenderness Psych Psychological: normal affect Assessment & Plan 1. Postoperative atrial fibrillation I97.89; I48.91 Plan She currently has persistent atrial fibrillation. She has been anticoagulated for at least 3 weeks. With her preserved ejection fraction I would recommend that we consider DC cardioversion. Risk benefits alternatives have been explained to her she understands and agrees to proceed we will arrange this as an outpatient. Orders Orders: Cardioversion Today 12 Lead EKG Today 2. History of aortic valve replacement with bioprosthetic valve Z95.3 TAVR w/ #29 Benitez S 3 Valve 06/05/2020 Plan She is status post successful TAVR procedure. Her last echocardiogram demonstrated a peak mean gradient of 26 over 13 mmHg with normal diastolic. No wall motion abnormalities were noted. She will continue with the current medical therapy. 3. Essential (primary) hypertension I10 Plan She does have a history of hypertension. Her blood pressure appears to be under fair control as judged by her blood pressure measurements at home. I would not suggest that we make any changes to the above therapies. Thank you for allowing me to participate in the care of your patient. Please don't hesitate to call if any issues arise. 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
--- NOTE | 2020-11-08 12:11 | CARDIOVERS ---
Cardioversion Cardioversion: DC cardioversion. 74-year-old lady status post TAVR with persistent atrial fibrillation on anticoagulation. Patient was seen by Dr. Goncalves of the critical care division. Informed consent was obtained. Anterior posterior pads were applied. The patient was then administered 60 mg of intravenous propofol. 200 J of synchronized biphasic energy were applied with prompt reversal to sinus rhythm. Patient tolerated the procedure well. Conclusion: Successful DC cardioversion from atrial fibrillation to sinus rhythm. Continue current medications Continue anticoagulation Follow-up per office protocol.
--- NOTE | 2020-11-08 14:23 | PCM.OP.PRO ---
Problem List (1) Essential (primary) hypertension Status: Chronic (2) History of aortic valve replacement with bioprosthetic valve Status: Chronic Comment: TAVR w/ #29 Benitez S 3 Valve 06/05/2020 (3) Hyperlipidemia Status: Chronic Qualifiers: (4) Nonrheumatic aortic (valve) stenosis with insufficiency Status: Chronic (5) Postoperative atrial fibrillation Status: Chronic (6) Premature ventricular contractions Status: Chronic Procedure Report Date of Procedure: 11/08/20 - Conscious sedation CONSCIOUS SEDATION REPORT BRIEF HISTORY OF PRESENT ILLNESS: The patient is a 74-year-old female who presented to [facility] for an elective outpatient cardioversion due to underlying atrial fibrillation. The patient reports no PO intake since midnight. The patient does not have a history of obstructive sleep apnea. The patient reports no history of smoking and COPD. The patient denies any recent constitutional symptoms such as fevers, chills, nausea or vomiting. The patient denies previous anesthetic complications. Patient did take Eliquis on the day of the procedure. Patient's last known ejection fraction was 68%. PHYSICAL EXAMINATION: VITAL SIGNS: Reviewed and were acceptable. GENERAL: The patient is a female, in no apparent distress, speaking in full sentences. HEENT: Normocephalic, atraumatic. Mucous membranes are moist and pink. Good mouth opening noted. Trachea is midline. Good neck mobility. MP II CHEST: S1, S2 irregularly irregular. No murmurs, rubs or gallops were noted. LUNGS: Clear to auscultation bilaterally without appreciable wheezes, rales or rhonchi. ABDOMEN: Soft, nontender, nondistended. Positive bowel sounds. EXTREMITIES: There is no clubbing, cyanosis or edema. ASA Class: II DESCRIPTION OF PROCEDURE: After confirmation of informed consent, the patient's anesthesia plan was reviewed in detail. Propofol was chosen. Risks and benefits were reviewed and the patient agreed to proceed. At 12:01 PM, the patient was given 40 mg of propofol. The patient required a total of 60 mg of propofol throughout the procedure to achieve appropriate sedation. The patient achieved an appropriate level of sedation and received 1 attempt synchronized cardioversion, at [address] Bianchi at the bedside. This was successful in achieving normal sinus rhythm. The patient was monitored until 12:16 PM, at which time the patient reached their baseline mental status and function. The patient tolerated the procedure well. COMPLICATIONS: None ESTIMATED BLOOD LOSS: None RECOMMENDATIONS: Okay to recover in usual fashion. [id number]: Other Procedure See Report - [id number] -15 minutes of conscious sedation
== END 2020-11-08 13:15 | disposition home or self-care (01) ==
LOC: CLSP 10:26
PROVIDERS: PCP Internal Medicine; Referring Provider Internal Medicine Cardiovascular Disease; Visit Provider Internal Medicine Cardiovascular Disease
DX: I48.19 Other persistent atrial fibrillation (principal); I49.3 Ventricular premature depolarization; I35.2 Nonrheumatic aortic (valve) stenosis with insufficiency; I97.89 Other postprocedural complications and disorders of the circulatory system, not elsewhere classified; I99.8 Other disorder of circulatory system; I10 Essential (primary) hypertension; E78.5 Hyperlipidemia, unspecified; G47.33 Obstructive sleep apnea (adult) (pediatric); E66.9 Obesity, unspecified; Z79.01 Long term (current) use of anticoagulants; Z79.82 Long term (current) use of aspirin; Z79.899 Other long term (current) drug therapy; Z95.3 Presence of xenogenic heart valve; Z96.641 Presence of right artificial hip joint
CPT/HCPCS: 92960; 93005; J7040

== ENCOUNTER → 2021-04-05 15:29 | Outpatient (CLI) | payer MEDICARE, SELFPAY ==
[2021-02-01 07:52] VITALS: BMI 37.9
--- NOTE | 2021-04-05 15:32 | RAD_ITS ---
STUDY: X-RAY - LUMBAR SPINE REASON FOR EXAM: Female, 75 years old. FALL/pain TECHNIQUE: 3 view(s) of the lumbar spine were obtained. COMPARISON: Prior lumbar spine series of 06/17/2018 FINDINGS: Normal lumbar lordosis. Moderate levoscoliosis centered at L2. No substantial change in alignment from prior exam. Stable chronic compression deformities of T11, T12 and L1. Normal vertebral body height at L2. Mild chronic loss of height at L3 status post vertebroplasty. Mild loss of height at L4 and L5 stable from prior exam. Advanced diffuse degenerative disc narrowing and spondylitic endplate changes. Generalized facet arthrosis. The soft tissue structures are unremarkable. RAD/Lumbar Spine 2 or 3 Views IMPRESSION: Straightening of the lumbar spine and a moderate levoscoliosis without substantial change in alignment from prior exam. Negative for acute compression deformity of the lumbar spine. Chronic compression deformities as described above stable from for prior exam. Status post is stable vertebroplasty at L2. Electronically Signed: Latasha Fields MD at 15:58 EDT , Service support ,
--- NOTE | 2021-04-05 15:32 | RAD_ITS ---
STUDY: X-RAY - THORACIC SPINE REASON FOR EXAM: Female, 75 years old. FALL TECHNIQUE: 2 view(s) of the thoracic spine were obtained. COMPARISON: None. FINDINGS: Normal kyphosis of the thoracic spine. There is no substantial scoliosis. There is demineralization of the thoracic spine with endplate spondylosis. There is multilevel disc space narrowing of the thoracic spine. Loss of right 3 lower dorsal vertebrae. Prior aortic valve replacement. RAD/Thoracic Spine 2 Views IMPRESSION: Loss of height of 3 lower dorsal vertebrae. Electronically Signed: Jake Yan MD at 14:17 EDT , Service support ,
== END ==
PROVIDERS: PCP Internal Medicine; Referring Provider Anesthesiology Pain Medicine; Visit Provider Anesthesiology Pain Medicine
DX: M54.5 Low back pain (principal); M54.6 Pain in thoracic spine
CPT/HCPCS: 72070; 72100

== ENCOUNTER 2022-01-19 07:58 | Emergency (ER) | payer MEDICARE, SELFPAY ==
[2022-01-19 07:59] VITALS: BP 185/76; PULSE 62; RESP 14; TEMP 36.1; O2SAT 97; BMI 36.6
--- NOTE | 2022-01-19 08:15 | EDS_ITS ---
HPI <Dr. Xiao Edouard MD - Last Filed: 01/19/22 10:32> History of Present Illness Chief Complaint: Lower Extremity Injury <BOLA NEGRO - Last Filed: 01/19/22 10:24> History of Present Illness Informant: patient Onset/Context/Timing Onset: Yesterday Context: Gradual Onset Timing: Continuous Current Severity: 07/01 Maximum Severity: 07/01 Narrative Narrative: Patient presents secondary to right knee pain that began yesterday. 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 Patient states then that she had difficulty getting out of the car and bearing weight on that leg. Patient states that the pain continues today despite taking tramadol at 0730. Patient states pain is 10 out of 10, and while able to bend knee minimally, this also is very painful. Prior similar symptoms: No Recent Illness/Hospitalization: No PFSH <Dr. Xiao Edouard MD - Last Filed: 01/19/22 10:32> PFS Medical History (Updated 01/19/22 @ 10:24 by BOLA NEGRO) Abnormal electrocardiogram Cellulitis of leg without foot, left Essential (primary) hypertension Hyperlipidemia Knee sprain Left ventricular diastolic dysfunction Nonrheumatic aortic (valve) stenosis with insufficiency Obesity Obstructive sleep apnea Paroxysmal atrial fibrillation Peripheral vascular occlusive disease Postoperative atrial fibrillation (06/05/20) Premature ventricular contractions Secondary pulmonary arterial hypertension Stasis dermatitis without varicosities Home Medications multivitamin with folic acid 1 tab PO DAILY 02/20/14 [History Last Taken Unknown] aspirin 81 mg PO DAILY@0800 02/27/15 [History Last Taken 11/08/20] atorvastatin 20 mg PO QHS 02/27/15 [History Last Taken Unknown] cholecalciferol (vitamin D3) 1,000 unit PO BID 02/27/15 [History Last Taken Unknown] cyanocobalamin (vitamin B-12) 250 mcg PO DAILY@0800 02/27/15 [History Last Taken Unknown] omeprazole 20 mg PO DAILY 02/27/15 [History Last Taken 11/08/20] Lactobacillus rhamnosus GG 1 ea PO DAILY 03/13/15 [History Last Taken Unknown] apixaban 5 mg tablet 5 mg PO BID 09/13/20 [History Last Taken 11/08/20] amlodipine 2.5 mg tablet 2.5 mg PO DAILY #90 tab 02/01/21 [Rx Last Taken Unknown] losartan 100 mg tablet 100 mg PO DAILY #90 tab 02/01/21 [Rx Last Taken Unknown] metoprolol tartrate 50 mg tablet 50 mg PO BID #180 tab 10/24/21 [Rx Last Taken Unknown] amiodarone 200 mg tablet 200 mg PO DAILY #90 tab 10/29/21 [Rx Last Taken Unknown] hydrochlorothiazide 25 mg tablet 37.5 mg PO DAILY tab 12/11/21 [History Last Taken Unknown] tramadol 50 mg tablet 50 mg PO DAILY tab 12/11/21 [History Last Taken Unknown] hydrocodone-acetaminophen 1 tab PO Q6H PRN 3 Days #10 tab 01/19/22 [Rx Last Taken Unknown] Allergy/AdvReac Type Severity Reaction Status Date / Time captopril [From Capoten] Allergy Unknown Verified 01/19/22 08:02 diclofenac Allergy Unknown Verified 01/19/22 08:02 naproxen AdvReac Nausea Verified 01/19/22 08:02 Family History Father CVA (cerebral vascular accident) Hypertension Atrial fibrillation Congestive heart failure Mother , in her 90's, pt of Dr. Bianchi Hypertension CVA (cerebral vascular accident) Atrial fibrillation Congestive heart failure Brother , age 60 Atrial fibrillation Congestive heart failure Colon cancer Sister CAD (coronary artery disease) Sister , age 65 CAD (coronary artery disease) Hypertension S/P CABG (coronary artery bypass graft) History of heart valve replacement Sister Atrial fibrillation Other Family history of CVA Family history of hyperlipidemia Family history of hypertension Surgical History History of aortic valve replacement with bioprosthetic valve (06/05/20) History of cardioversion (11/08/20) History of D&C History of hand surgery History of left heart catheterization (05/01/20) History of right hip replacement History of tubal ligation Social History Smoking Status: Never smoker alcohol intake: current caffeine: Yes Type: carbonated beverages Number of servings: 1 <BOLA NEGRO - Last Filed: 01/19/22 10:24> ROS ED Constitutional Constitutional ED: Denies chills, fever(s) or sweats Eyes Eyes: Denies change in vision ENT ENT ED: Denies ear pain, rhinorrhea or sore throat Cardiovascular Cardiovascular: Denies chest pain or palpitations Respiratory/Chest Respiratory/Chest: Denies cough or dyspnea Gastrointestinal Gastrointestinal: Denies abdominal pain, diarrhea, nausea or vomiting Genitourinary Genitourinary ED: Denies dysuria Musculoskeletal Musculoskeletal: Reports systems reviewed and no addt'l complaints, except as do cumented, numbness and tingling Integumentary Denies rash Neurologic Neurologic: Denies headache(s) or weakness Psychiatric Psychiatric: Denies depression Endocrine Endocrinology: Denies polyuria EXAM <Dr. Xiao Edouard MD - Last Filed: 01/19/22 10:32> Physical Exam Const Vital Signs: 01/19/22 07:59 Temperature 96.9 F L Temperature Source Temporal Pulse Rate 62 Respiratory Rate 14 Blood Pressure 185/76 H Blood Pressure Mean 112 Pulse Ox 97 Oxygen Delivery Method Room Air <BOLA MARKY - Last Filed: 01/19/22 10:24> Physical Exam Const Vital Signs: 01/19/22 07:59 Temperature 96.9 F L Temperature Source Temporal Pulse Rate 62 Respiratory Rate 14 Blood Pressure 185/76 H Blood Pressure Mean 112 Pulse Ox 97 Oxygen Delivery Method Room Air Positive well nourished and well developed General Appearance ED: well developed HEENT Reports moist mucous membranes Negative for trauma or tenderness Eyes PERRL and EOMs intact bilaterally Neck no lymphadenopathy and supple Chest Wall inspection of chest normal and palpation of chest normal Resp normal respiratory effort and clear to auscultation bilaterally Cardio regular rate and regular rhythm Heart Sounds: murmur GI normal to inspection, nondistended, normoactive bowel sounds and non-tender Palpation: soft Back/Spine no CVA tenderness Extremity Right Lower Extremity: knee joint inspection (No overlying erythema.), palpation (Nonpitting edema.), ROM (Limited range of motion.) and neurovascular exam (Sensation intact. Dorsalis pedis and posterior tibial pulses 2+.) Neuro oriented x3 Sensorium / Orientation: alert Psych mental status grossly normal Skin no rashes or lesions noted [facility] <Dr. Xiao Edouard MD - Last Filed: 01/19/22 10:32> MDM Radiography Diagnostic Testing: Clinical Impression(s) from Imaging Studies Knee X-Ray 01/19/22 08:40 IMPRESSION: Degenerative arthrosis. Large joint effusion. Electronically Signed: Ad Husain MD at 9:03 EDT , Treatment and Re-Evaluation Narrative: Patient seen and evaluated with [employer] student. I personally interviewed and examined the patient. I was involved in all aspects of patient's orders, interpretation of results, and treatment. Patient presents secondary to right knee pain and swelling. Patient states she was working her part-time job yesterday for approximate 4 hours. She is on her feet a lot. Following this she went to get dinner and sat in her car to eat. When she went to get out of her car she had significant pain and swelling in her right knee. She got out her 's old walker and use that to help her ambulate around the house. She is on tramadol regularly secondary to chronic back pain. She took a dose this morning but states it did not significantly help the pain. Patient sitting upright in bed no acute distress. Head and neck examination unremarkable. Heart regular rate and rhythm. Lung sounds are clear. Abdomen is soft nontender. Right lower extremity examination reveals no tenderness at the hip. She has mild tenderness diffusely around the right knee with small effusion. No excessive erythema or warmth. No ecchymosis. Good distal pulses. Decreased range of motion at the knee secondary to pain. Right knee x-rays obtained and consistent with joint effusion. Arthritic changes appreciated. Radiologist interpretation also reviewed. Patient received 1 tab of West here for pain control. She be placed in an Migue wrap for light compression. She will be written for West and can take this in place of her tramadol over the next couple days. She will use the walker to help her get around. She will follow-up with orthopedics and her pain management doctor as needed. Return instructions provided <BOLA NEGRO - Last Filed: 01/19/22 10:24> [facility] Narrative Medical decision making narrative: Right knee x-ray ordered. Radiography Diagnostic Testing: Clinical Impression(s) from Imaging Studies Knee X-Ray 01/19/22 08:40 IMPRESSION: Degenerative arthrosis. Large joint effusion. Electronically Signed: Ad Husain MD at 9:03 EDT Reading Location ID and State: [facility] / [place] , Service support , Treatment and Re-Evaluation Narrative: On reevaluation, patient reports that her pain is decreased to 8 out of 10 and was able to maneuver from wheelchair to bathroom more easily. X-ray report discussed with patient and family at bedside. Migue wrap of right knee ordered. Patient will be discharged with prescription for West and given referral information for [facility] orthopedic. Patient states that she has a walker at home to use and verbalizes understanding of supportive care Discharge Plan Triage Chief Complaint: Lower Extremity Injury ED Provider: Xiao Edouard Dx/Rx/DC Orders Clinical Impression: Effusion of knee joint right Instructions: ED Knee Effusion Prescriptions: New hydrocodone-acetaminophen 5-325 mg tablet 1 tab PO Q6H PRN (Reason: pain) 3 Days Qty: 10 RF: 0 No Action Eliquis 5 mg tablet 5 mg PO BID RF: 0 losartan 100 mg tablet 100 mg PO DAILY Qty: 90 RF: 3 multivitamin with folic acid 1 TABLET tablet 1 tab PO DAILY RF: 0 hydrochlorothiazide 25 mg tablet 37.5 mg PO DAILY RF: 0 atorvastatin 20 MG tablet 20 mg PO QHS RF: 0 cyanocobalamin (vitamin B-12) 500 MCG tablet 250 mcg PO DAILY@0800 RF: 0 omeprazole 20 MG capsule 20 mg PO DAILY RF: 0 aspirin 81 MG tablet,chewable 81 mg PO DAILY@0800 RF: 0 cholecalciferol (vitamin D3) 1,000 UNIT tablet 1,000 unit PO BID RF: 0 Lactobacillus rhamnosus GG 1 EACH capsule 1 ea PO DAILY RF: 0 tramadol 50 mg tablet 50 mg PO DAILY RF: 0 amlodipine 2.5 mg tablet 2.5 mg PO DAILY Qty: 90 RF: 3 metoprolol tartrate 50 mg tablet 50 mg PO BID Qty: 180 RF: 3 amiodarone 200 mg tablet 200 mg PO DAILY Qty: 90 RF: 3 Primary Care Provider: Hanna Rodriguez Referrals: Lei Ferrara MD [NON-STAFF] - As Needed Hanna Rodriguez MD [Primary Care Provider] - Disposition Disposition: Home, Self Care
[2022-01-19] MEDS: HYDROcodone Bitartrate/Apap 5/325 Tablet PO (08:27)
--- NOTE | 2022-01-19 08:40 | RAD_ITS ---
STUDY: X-RAY - RIGHT KNEE REASON FOR EXAM: Female, 76 years old. PAIN TECHNIQUE: 4 view(s) of the knee. COMPARISON: None. FINDINGS: There is demineralization of the visualized distal femur. There is demineralization of the tibia and fibula. Normal proximal tibiofibular articulation. There is no demonstrated fracture. There is mild degenerative arthrosis of the medial femorotibial compartment. There is mild degenerative arthrosis of the lateral femorotibial compartment. There is moderate degenerative arthrosis of the patellofemoral articulation. There is a large volume joint effusion. Chondrocalcinosis of the menisci. The soft tissue structures are unremarkable. RAD/Knee 4 or More Views IMPRESSION: Degenerative arthrosis. Large joint effusion. Electronically Signed: Ad Husain MD at 9:03 EDT ,
[2022-01-19 10:45] VITALS: BP 146/57; PULSE 72; RESP 16; O2SAT 96
--- NOTE | 2022-01-22 15:58 | CASEMGMT ---
Addendum entered by Trina Sheppard 01/22/22 16:13: DIEUDONNE ROBELS received call back from patient. Patient states she is doing better a little bit everyday. Patient states she was able to fill prescription without any issues. Patient states she has scheduled appt with ortho. Patient had no further questions or concerns at this time. Original Note: ED follow-up phone call: DIEUDONNE ROBLES attempted to completed phone call. No answer, voice message left with return contact information.
== END 2022-01-19 10:46 | disposition home or self-care (01) ==
PROVIDERS: Emergency Provider Emergency Medicine; PCP Internal Medicine; Visit Provider Emergency Medicine
DX: M25.461 Effusion, right knee (principal); I27.21 Secondary pulmonary arterial hypertension; I48.0 Paroxysmal atrial fibrillation; I10 Essential (primary) hypertension; E78.5 Hyperlipidemia, unspecified; G47.33 Obstructive sleep apnea (adult) (pediatric); I35.0 Nonrheumatic aortic (valve) stenosis; E66.9 Obesity, unspecified; Z79.82 Long term (current) use of aspirin; Z79.01 Long term (current) use of anticoagulants; Z79.899 Other long term (current) drug therapy
CPT/HCPCS: 73564; 99283

== ENCOUNTER 2022-04-07 08:31 | Emergency (ER) | payer MEDICARE, SELFPAY ==
[2022-04-07 08:32] VITALS: BP 168/80; PULSE 68; RESP 14; TEMP 36.1; O2SAT 99; BMI 34.6
--- NOTE | 2022-04-07 09:27 | RAD_ITS ---
STUDY: X-RAY - RIGHT KNEE REASON FOR EXAM: Female, 76 years old. pain TECHNIQUE: 5 view(s) of the knee. COMPARISON: None. FINDINGS: Normal visualized distal femur. Normal visualized proximal tibia and fibula. Normal proximal tibiofibular articulation. There is mild degenerative arthrosis of the medial femorotibial compartment. There is mild degenerative arthrosis of the lateral femorotibial compartment. Chondrocalcinosis of the medial and lateral compartments. There is mild degenerative arthrosis of the patellofemoral articulation. Serpiginous opacities project in the lateral soft tissues. RAD/Knee 4 or More Views IMPRESSION: 1. Small joint effusion. Degenerative changes with chondrocalcinosis. 2. Lateral soft tissue varicose veins. Electronically Signed: Boyd King MD ([place]) at 10:02 EDT ,
--- NOTE | 2022-04-07 09:27 | ED.VIS.LOWEX ---
HPI History of Present Illness Chief Complaint: Lower Extremity Injury Narrative Narrative: 76-year-old female presenting with right knee pain. She states she does have some chronic issues with her right knee. Usually she is ambulatory and does not require anything more than her baseline tramadol and Tylenol. She states he was standing in the kitchen 2 days ago and took a step and after couple steps she felt sharp pain in the lateral aspect of her right knee. She denies any direct trauma. She states the pain radiates down her leg on the lateral aspect. Patient reports that it does make a clicking sound when she walks from time to time since her injury. No numbness. [facility] Medical History Abnormal electrocardiogram Cellulitis of leg without foot, left Essential (primary) hypertension Hyperlipidemia Knee sprain Left ventricular diastolic dysfunction Nonrheumatic aortic (valve) stenosis with insufficiency Obesity Obstructive sleep apnea Paroxysmal atrial fibrillation Peripheral vascular occlusive disease Postoperative atrial fibrillation (06/05/20) Premature ventricular contractions Secondary pulmonary arterial hypertension Stasis dermatitis without varicosities Home Medications multivitamin with folic acid 400 mcg tablet 1 tab PO DAILY 02/20/14 [History Last Taken Unknown] aspirin 81 mg chewable tablet 81 mg PO DAILY@0800 02/27/15 [History Last Taken 11/08/20] atorvastatin 20 mg tablet 20 mg PO QHS 02/27/15 [History Last Taken Unknown] cholecalciferol (vitamin D3) 25 mcg (1,000 unit) tablet 1,000 unit PO BID 02/27/15 [History Last Taken Unknown] cyanocobalamin (vitamin B-12) 500 mcg tablet 250 mcg PO DAILY@0800 02/27/15 [History Last Taken Unknown] omeprazole 20 mg capsule,delayed release 20 mg PO DAILY 02/27/15 [History Last Taken 11/08/20] Lactobacillus rhamnosus GG 10 billion cell capsule 1 ea PO DAILY 03/13/15 [History Last Taken Unknown] apixaban 5 mg tablet (Eliquis) 5 mg PO BID 09/13/20 [History Last Taken 11/08/20] amiodarone 200 mg tablet 200 mg PO DAILY #90 tabs 10/29/21 [Rx Last Taken Unknown] hydrochlorothiazide 25 mg tablet 37.5 mg PO DAILY 12/11/21 [History Last Taken Unknown] tramadol 50 mg tablet 50 mg PO DAILY Pain 12/11/21 [History Last Taken Unknown] hydrocodone-acetaminophen 5-325mg 5mg-325mg 1 tab PO Q6H PRN pain 3 days #10 tabs 01/19/22 [Rx Last Taken Unknown] amlodipine 2.5 mg tablet 2.5 mg PO DAILY #90 tabs 02/05/22 [Rx Last Taken Unknown] losartan 100 mg tablet 100 mg PO DAILY #90 tabs 02/05/22 [Rx Last Taken Unknown] metoprolol tartrate 50 mg tablet 50 mg PO BID #180 tabs 02/06/22 [Rx Last Taken Unknown] hydrocodone-acetaminophen 5-325mg 5mg-325mg 1 tab PO Q6H PRN pain 3 days #10 tabs 04/07/22 [Rx Last Taken Unknown] Allergy/AdvReac Type Severity Reaction Status Date / Time captopril [From Capoten] Allergy Unknown Verified 04/07/22 08:33 diclofenac Allergy Unknown Verified 04/07/22 08:33 naproxen AdvReac Nausea Verified 04/07/22 08:33 Family History Father CVA (cerebral vascular accident) Hypertension Atrial fibrillation Congestive heart failure Mother , in her 90's, pt of Dr. Bianchi Hypertension CVA (cerebral vascular accident) Atrial fibrillation Congestive heart failure Brother , age 60 Atrial fibrillation Congestive heart failure Colon cancer Sister CAD (coronary artery disease) Sister , age 65 CAD (coronary artery disease) Hypertension S/P CABG (coronary artery bypass graft) History of heart valve replacement Sister Atrial fibrillation Other Family history of CVA Family history of hyperlipidemia Family history of hypertension Surgical History History of aortic valve replacement with bioprosthetic valve (06/05/20) History of cardioversion (11/08/20) History of D&C History of hand surgery History of left heart catheterization (05/01/20) History of right hip replacement History of tubal ligation Social History Smoking Status: Never smoker alcohol intake: current caffeine: Yes Type: carbonated beverages Number of servings: 1 ROS ROS ED Constitutional Constitutional ED: Denies chills, fever(s) or sweats Eyes Eyes: Denies change in vision ENT ENT ED: Denies ear pain, rhinorrhea or sore throat Cardiovascular Cardiovascular: Denies chest pain or palpitations Respiratory/Chest Respiratory/Chest: Denies cough or dyspnea Gastrointestinal Gastrointestinal: Denies abdominal pain, diarrhea, nausea or vomiting Genitourinary Genitourinary ED: Denies dysuria Musculoskeletal Musculoskeletal: Reports other Details: Right knee pain Integumentary Denies rash Neurologic Neurologic: Denies headache(s) or weakness Psychiatric Psychiatric: Denies depression Endocrine Endocrinology: Denies polyuria EXAM Physical Exam Const Vital Signs: 04/07/22 08:32 Temperature 97.0 F L Temperature Source Temporal Pulse Rate 68 Respiratory Rate 14 Blood Pressure 168/80 H Blood Pressure Mean 109 Pulse Ox 99 Oxygen Delivery Method Room Air Positive well nourished General Appearance ED: NAD HEENT Reports moist mucous membranes Resp normal respiratory effort and no retractions Cardio regular rate and regular rhythm Extremity Extremity Narrative: Tenderness palpation lateral aspect of the right knee over the joint line. No ligamentous laxity. There is pain with varus strain. No patellar tenderness. Right knee extensor mechanism is intact. Neuro oriented x3 and CN's II-XII intact bilaterally Sensorium / Orientation: alert Psych mental status grossly normal Skin no wounds MDM MDM MDM Narrative Medical decision making narrative: Patient medicated with [place] for knee pain. I suspect she might have a meniscal tear based on her history and exam. X-ray of the right knee shows no acute fracture or subluxation. There is a small joint effusion on my interpretation. Patient use ice and elevation. She is given an Migue wrap here. She will follow-up with her primary care doctor or orthopedics to ensure resolution. Impression: 1. Right knee strain Lab Data Attestation: I reviewed the patient's lab results. Radiography Diagnostic Testing: Clinical Impression(s) from Imaging Studies Knee X-Ray 04/07/22 09:27 IMPRESSION: 1. Small joint effusion. Degenerative changes with chondrocalcinosis. 2. Lateral soft tissue varicose veins. Electronically Signed: Boyd King MD ([place]) at 10:02 EDT Reading Location ID and State: [facility] / [place] , Service support , Discharge Plan Triage Chief Complaint: Lower Extremity Injury ED Provider: Finesse Howell Dx/Rx/DC Orders Instructions: ED Meniscal Injury Knee Poss, ED Knee Effusion Prescriptions: New hydrocodone-acetaminophen 5-325 mg tablet 1 tab PO Q6H PRN (Reason: pain) 3 Days Qty: 10 0RF No Action Eliquis 5 mg tablet 5 mg PO BID multivitamin with folic acid 1 TABLET tablet 1 tab PO DAILY Label Comments: SUPPLEMENT hydrochlorothiazide 25 mg tablet 37.5 mg PO DAILY Label Comments: BP atorvastatin 20 MG tablet 20 mg PO QHS Label Comments: CHOLESTEROL cyanocobalamin (vitamin B-12) 500 MCG tablet 250 mcg PO DAILY@0800 Label Comments: SUPPLEMENT omeprazole 20 MG capsule 20 mg PO DAILY Label Comments: GERD aspirin 81 MG tablet,chewable 81 mg PO DAILY@0800 Label Comments: [facility] cholecalciferol (vitamin D3) 1,000 UNIT tablet 1,000 unit PO BID Label Comments: SUPPLEMENT Lactobacillus rhamnosus GG 1 EACH capsule 1 ea PO DAILY Label Comments: PROBIOTIC tramadol 50 mg tablet 50 mg PO DAILY Label Comments: PAIN hydrocodone-acetaminophen 5-325 mg tablet 1 tab PO Q6H PRN (Reason: pain) 3 Days Qty: 10 0RF amiodarone 200 mg tablet 200 mg PO DAILY Qty: 90 3RF losartan 100 mg tablet 100 mg PO DAILY Qty: 90 3RF amlodipine 2.5 mg tablet 2.5 mg PO DAILY Qty: 90 3RF metoprolol tartrate 50 mg tablet 50 mg PO BID Qty: 180 3RF Primary Care Provider: Hanna Rodriguez Referrals: Hanna Rodriguez MD [Primary Care Provider] - Disposition Disposition: Home, Self Care
[2022-04-07] MEDS: HYDROcodone Bitartrate/Apap 5/325 Tablet PO (09:53)
[2022-04-07 11:33] VITALS: BP 149/65; RESP 18
== END 2022-04-07 11:40 | disposition home or self-care (01) ==
PROVIDERS: Emergency Provider Student in an Organized Health Care Education/Training Program; PCP Internal Medicine; Visit Provider Student in an Organized Health Care Education/Training Program
DX: S83.91XA Sprain of unspecified site of right knee, initial encounter (principal); I27.21 Secondary pulmonary arterial hypertension; M25.461 Effusion, right knee; E78.5 Hyperlipidemia, unspecified; I10 Essential (primary) hypertension; Z79.899 Other long term (current) drug therapy; Z79.82 Long term (current) use of aspirin
CPT/HCPCS: 73564; 99283

== ENCOUNTER → 2023-01-13 | Outpatient (CLI) | payer MEDICARE, SELFPAY ==
[2023-01-13 12:52] LABS: BNP,B-Type NATRIURETIC PEPTIDE 545.5 pg/mL (0-100)
[2023-01-13 13:10] LABS: Anion Gap 3 (5-15); BUN 16 mg/dL (7-18); BUN/Creat Ratio 20.3 RATIO (10-20); Calcium,Total 9.5 mg/dL (8.5-10.1); Chloride 97 mmol/L (98-107); Creatinine, Serum 0.79 mg/dL (0.55-1.02); EST Glomerular Filtration Rate 76 mL/min (>60); Est Glom Filt Rate - Afr Amer 92 mL/min (>60); Glucose 93 mg/dL (74-106); Potassium 3.6 mmol/L (3.5-5.1); Sodium Level 132 mmol/L (136-145); T4 Free Direct 1.57 ng/dL (0.76-1.46); Thyroid Stim Hormone (TSH) 2.05 uIU/mL (0.358-3.74)
== END | disposition home or self-care (01) ==
LOC: LAB 12:10
PROVIDERS: PCP Internal Medicine; Referring Provider Nurse Practitioner Family; Visit Provider Nurse Practitioner Family
DX: R06.00 Dyspnea, unspecified (principal); I48.0 Paroxysmal atrial fibrillation; Z95.3 Presence of xenogenic heart valve; E78.5 Hyperlipidemia, unspecified; Z79.899 Other long term (current) drug therapy
CPT/HCPCS: 36415; 80048; 83880; 84439; 84443

== ENCOUNTER → 2023-07-15 | Outpatient (CLI) | payer MEDICARE, SELFPAY ==
--- NOTE | 2023-07-15 08:56 | ECHOD_ITS ---
Reason For Study: S/P TAVR Procedure This was a 2D Doppler, Color Flow transthoracic echocardiogram. Exam performed in department. Left Ventricle Normal LV size. Mild concentric left ventricular hypertrophy. Left ventricular systolic function is normal. The estimated ejection fraction is 60 %. No regional wall motion abnormalities noted. Right Ventricle Normal RV size. Normal systolic function. Atria The left atrium is moderately enlarged. The right atrium is moderately enlarged. Mitral Valve Normal mitral valve. Mild-Moderate (1-2+) eccentric mitral valve insufficiency. Tricuspid Valve Normal tricuspid valve. Mild (1+) tricuspid valve insufficiency. Pulmonary artery systolic pressure is 40 mmHg. Aortic Valve Peak aortic valve gradient 21 mmHg. Mean aortic valve gradient 13 mmHg. Mild (1+) eccentric aortic valve insufficiency. Bioprosthetic aortic valve. Great Vessels Mild to moderately dilated aortic root. The pulmonary artery is normal size. Normal inferior vena cava. Pericardium/Pleural No pericardial effusion. MMode/2D Measurements & Calculations LVIDd: 5.1 cm IVSd: 1.2 cm Ao root diam: 4.4 cm LVIDs: 3.4 cm LVPWd: 1.2 cm RVDd: 4.3 cm FS: 33.8 % LAV(MOD-bp): 107.8 ml LVAd ap4: 39.9 cm2 SV(MOD-sp4): 99.4 ml LAV(MOD-bp) Indexed: 53.1 ml/m2 LVLd ap4: 8.0 cm LAV(MOD-sp2): 104.9 ml EDV(MOD-sp4): 159.4 ml LAV(MOD-sp4): 100.9 ml EDV(sp4-el): 168.8 ml LVAs ap4: 21.8 cm2 LVLs ap4: 6.7 cm ESV(MOD-sp4): 60.0 ml ESV(sp4-el): 60.3 ml EF(MOD-sp4): 62.4 % EF(sp4-el): 64.3 % SV(sp4-el): 108.5 ml LA dimension(2D): 4.4 cm LA A4 area: 29.2 cm2 RA A4 area: 24.0 cm2 TAPSE: 2.6 cm Doppler Measurements & Calculations Lat Peak E' Gopi: 12.4 cm/sec Med Peak E' Gopi: 6.0 cm/sec Ao V2 max: 230.1 cm/sec Ao max P.2 mmHg Ao V2 mean: 174.0 cm/sec Ao mean P.0 mmHg Ao V2 VTI: 57.9 cm AV (velocity ratio): 0.55 AI max gopi: 415.9 cm/sec LV V1 max: 123.4 cm/sec MR max gopi: 606.8 cm/sec AI max P.3 mmHg LV V1 max P.1 mmHg MR max P.3 mmHg LV V1 mean P.3 mmHg MR mean gopi: 503.4 cm/sec AI dec slope: 176.9 cm/sec2 LV V1 mean: 86.5 cm/sec MR mean P.2 mmHg AI P1/2t: 688.9 msec LV V1 VTI: 31.8 cm MR VTI: 246.2 cm TR max gopi: 352.2 cm/sec TR max P.5 mmHg ECHO/Echo Complete Interpretation Summary Normal LV size. Mild concentric left ventricular hypertrophy. The left atrium is moderately enlarged. The right atrium is moderately enlarged. Bioprosthetic aortic valve. Mild (1+) eccentric aortic valve insufficiency. Left ventricular systolic function is normal. The estimated ejection fraction is 60 %. Recommend repeat in 6 months due to the post TAVR aortic regurgitation Ordering Physician: Rob Gan Referring Physician: Hanna Rodriguez Performed By: Theresa Michelle RDCS, RVT
== END | disposition home or self-care (01) ==
LOC: CVS 08:55
PROVIDERS: PCP Internal Medicine; Referring Provider Nurse Practitioner Family; Visit Provider Nurse Practitioner Family
DX: I35.2 Nonrheumatic aortic (valve) stenosis with insufficiency (principal); Z95.3 Presence of xenogenic heart valve
CPT/HCPCS: 93306

== ENCOUNTER → 2023-08-05 | Outpatient (CLI) | payer MEDICARE, SELFPAY ==
[2023-08-05 11:16] LABS: Amphetamine Urine VISTA NEGATIVE (<1000 ng/mL); Barbiturate Urine VISTA NEGATIVE (< 200 ng/mL); Benzodiazepine Urine VISTA NEGATIVE (< 200 ng/mL); Cocaine Urine VISTA NEGATIVE (< 300 ng/mL); Ecstacy Urine VISTA NEGATIVE (< 500 ng/mL); Methadone Urine VISTA NEGATIVE (< 300 ng/mL); PCP Urine VISTA NEGATIVE (< 25 ng/mL); THC Urine VISTA NEGATIVE (< 50 ng/mL); Vista UDS pH Range 8
== END | disposition home or self-care (01) ==
PROVIDERS: PCP Internal Medicine; Referring Provider Anesthesiology Pain Medicine; Visit Provider Anesthesiology Pain Medicine
DX: F11.20 Opioid dependence, uncomplicated (principal)
CPT/HCPCS: 80307

== ENCOUNTER → 2024-01-01 | Outpatient (CLI) | payer MEDICARE, SELFPAY ==
--- NOTE | 2024-01-01 12:46 | ECHOD_ITS ---
Version 2 Reason For Study: Procedure This was a 2D Doppler, Color Flow transthoracic echocardiogram. Exam performed in department. Left Ventricle Normal LV size. Mild concentric left ventricular hypertrophy. Left ventricular systolic function is normal. The estimated ejection fraction is 55 %. No regional wall motion abnormalities noted. Right Ventricle Normal RV size. Normal systolic function. Atria The left atrium is mildly enlarged. The right atrium is moderately enlarged. Mitral Valve Bileaflet diffuse mitral valve thickening. Mild (1+) eccentric mitral valve insufficiency. Tricuspid Valve Normal tricuspid valve. Mild to moderate (1-2+) tricuspid valve insufficiency. Pulmonary artery systolic pressure is 42 mmHg. Aortic Valve Peak aortic valve gradient 15 mmHg. Mean aortic valve gradient 8 mmHg. Mild (1+) aortic valve insufficiency. Bioprosthetic aortic valve. Pulmonic Valve Normal pulmonic valve. Great Vessels Normal aortic root. The pulmonary artery is normal size. Inferior vena cava collapse with sniff. Pericardium/Pleural No pericardial effusion. MMode/2D Measurements & Calculations LVIDd: 4.6 cm IVSd: 1.3 cm LVOT diam: 1.9 cm LVIDs: 3.7 cm LVPWd: 1.2 cm LVOT area: 2.8 cm2 FS: 19.4 % Ao root diam: 4.3 cm LAV(MOD-bp): 90.0 ml LVAd ap4: 34.8 cm2 LAV(MOD-bp) Indexed: 44.1 ml/m2 LVLd ap4: 8.0 cm LAV(MOD-sp2): 109.3 ml EDV(MOD-sp4): 118.9 ml LAV(MOD-sp4): 75.4 ml EDV(sp4-el): 128.3 ml LVAs ap4: 22.6 cm2 LVLs ap4: 7.2 cm ESV(MOD-sp4): 57.6 ml ESV(sp4-el): 60.2 ml EF(MOD-sp4): 51.6 % EF(sp4-el): 53.1 % SV(MOD-sp4): 61.3 ml SV(sp4-el): 68.1 ml LA A4 area: 23.4 cm2 LA dimension(2D): 4.0 cm RA A4 area: 25.7 cm2 Time Measurements MV dec time: 0.17 sec Doppler Measurements & Calculations MV E max ran: 122.3 cm/sec MV V2 max: 127.4 cm/sec MV dec slope: 722.4 cm/sec2 MV A max ran: 35.5 cm/sec MV max P.5 mmHg MV E/A: 3.4 MV V2 mean: 60.8 cm/sec MV mean P.0 mmHg MV V2 VTI: 31.3 cm MVA(VTI): 2.2 cm2 Ao V2 max: 192.3 cm/sec AI max ran: 488.5 cm/sec LV V1 max: 106.5 cm/sec Ao max P.9 mmHg AI max P.6 mmHg LV V1 max P.5 mmHg Ao V2 mean: 130.2 cm/sec AI dec slope: 263.9 cm/sec2 LV V1 mean P.4 mmHg Ao mean P.9 mmHg AI P1/2t: 542.2 msec LV V1 mean: 72.2 cm/sec Ao V2 VTI: 43.3 cm LV V1 VTI: 24.4 cm AV (velocity ratio): 0.56 LAVONNE(I,D): 1.6 cm2 LAVONNE(V,D): 1.5 cm2 SV(LVOT): 67.2 ml TR max ran: 311.4 cm/sec TR max P.8 mmHg ECHO/Echo Complete Interpretation Summary Normal LV size. Mild concentric left ventricular hypertrophy. The estimated ejection fraction is 55 %. The left atrium is mildly enlarged. The right atrium is moderately enlarged. Mean aortic valve gradient 8 mmHg. Mild (1+) aortic valve insufficiency. Bioprosthetic aortic valve. Ordering Physician: Rob Gan Referring Physician: Rob Gan Performed By: Mariangel Louie RCS
== END | disposition home or self-care (01) ==
LOC: CVS 12:45
PROVIDERS: PCP Internal Medicine; Referring Provider Nurse Practitioner Family; Visit Provider Nurse Practitioner Family
DX: I35.2 Nonrheumatic aortic (valve) stenosis with insufficiency (principal); I48.0 Paroxysmal atrial fibrillation; I10 Essential (primary) hypertension; E78.5 Hyperlipidemia, unspecified; Z95.3 Presence of xenogenic heart valve
CPT/HCPCS: 93306

== ENCOUNTER 2024-08-31 11:12 | Observation (INO) | payer MEDICARE, SELFPAY ==
[2024-08-31] VITALS (9 sets, daily range): BP systolic 132–162; BP diastolic 69–96; PULSE 63–79; RESP 14–18; TEMP 36.2–36.6; O2SAT 94–98; BMI 34.2; BMI 34.0
--- NOTE | 2024-08-31 11:28 | EKG12_ITS ---
Test Reason : ABD PAIN Blood Pressure : */* mmHG Vent. Rate : 77 BPM Atrial Rate : * BPM P-R Int : * ms QRS Dur : 118 ms QT Int : 428 ms P-R-T Axes : * -62 69 degrees QTcB Int : 484 ms Atrial fibrillation Left anterior fascicular block Minimal voltage criteria for LVH, may be normal variant ( [place] product ) Septal infarct , age undetermined Abnormal ECG Confirmed by KANG ANDERSON, SHERI ([id number]), deputy editor in chief MYRNA ADEN ([id number]) on 09/01/2024 11:41:03 AM Referred By: ADRIANA Confirmed By: SHERI KAPADIA MD
--- NOTE | 2024-08-31 11:49 | CT_ITS ---
STUDY: CTA ABDOMEN AND PELVIS WITH CONTRAST REASON FOR EXAM: Female, 78 years old. Lower gi bleed, abd pain, nausea, constipation x 2 days, htn, tubal ligation, rt hip replacement RADIATION DOSAGE (If Supplied By Facility): CTDIvol = ( 17.71 ) mGy, DLP = ( 1270.95 ) mGycm TECHNIQUE: Transaxial images were obtained from the dome of the diaphragm to the symphysis pubis without oral contrast. IV 100mL Isovue-370 was administered. Sagittal and coronal images were reconstructed. 3-D images were reconstructed. Individualized dose optimization techniques were used for this CT. COMPARISON: Comparison is made with prior study dated April 30, 2017. FINDINGS: Mild increased linear markings at the lung bases suggestive scarring. Coronary calcification. Prior aortic valve replacement. Normal liver. The gallbladder is distended. Low level density seen along the dependent portion of the gallbladder lumen suggestive of either tiny layering gallstones or sludge. Normal spleen. Normal pancreas. Normal bilateral adrenal glands. Normal right kidney. Normal left kidney. Normal visualized stomach. Normal small intestine. Moderate amount of fecal material is seen in the right hemicolon. Scattered sigmoid diverticula. Tiny high density structures are seen in the right hemicolon suggestive of possible ingested tablets of medication. There is non-visualization of the appendix. There is scattered tortuosity of the distal descending thoracic or at the level of the diaphragmatic hiatus. Atherosclerotic calcification of the abdominal aorta, without a demonstrated aneurysm. Normal inferior vena cava. Normal retroperitoneum. Normal urinary bladder. Calcified fibroid uterus. Normal abdominal wall. There are diffuse degenerative changes of the visualized lumbar spine. Levoscoliosis. Vertebral plasty of the L3 vertebrae. Complete collapse of the T10, T11 and T12 vertebrae with loss of height of the L1 and L5 vertebrae. Status post right thoracotomy placement. CT/CTA Abd/Pelvis W/WO Contrast IMPRESSION: Distended gallbladder with findings suggestive of layering gallstones or sludge along the dependent portion of the gallbladder lumen. No evidence of active bleeding at this time. Electronically Signed: Jake Yan MD at 13:31 EST ,
[2024-08-31 11:57] LABS: Mucous, Urine 0 SEEN /hpf (<or=2+); Red Blood Cells-Urine 0 SEEN /hpf (0-5); Squamous Epithelial Cells - UA 0 SEEN /hpf (5-10); White Blood Cells 0 SEEN /hpf (0-5)
[2024-08-31 12:03] LABS: Color, Urine Yellow (Yellow); Glucose, Dipstick Normal (Normal); Ketone-Dipstick Negative (Negative); Leukocyte Esterase-Dipstick Negative /ul (Negative); Nitrite-Dipstick Negative (Negative); Occult Blood-Urine 10 /ul (Negative); Protein-Dipstick Negative (Negative); Specific Gravity, Urine 1.005 (1.002-1.030); Urine Bilirubin Dipstick Negative (Negative); Urine Clarity Clear (Clear); Urine Urobilinogen Normal (Normal)
[2024-08-31 12:09] LABS: Bacteria RARE /hpf (None Seen)
--- NOTE | 2024-08-31 12:16 | EX.ED.DYSGE1 ---
HPI History of Present Illness Chief Complaint: Abd Pain Narrative Narrative: Patient is a 78-year-old female with past medical history of paroxysmal fibrillation on Eliquis, hypertension, WILLIAM, hyperlipidemia, PVCs who presents to the emergency department chief complaint of abdominal pain, nausea and some blood during her bowel movements. Patient states that she has been unable to have a bowel movement since Friday although she is passing gas. Patient states that she noted that when she attempted to have bowel movement today she had a small amount of blood noted that was bright red in nature. States that this was minimal in nature and states that it did happen approximately 3 times prior to her coming here to the emergency department. They noted that they try to go to urgent care however with her being on Eliquis they advised her to come to the emergency department. Patient denies any previous abdominal surgeries. Patient states that her abdominal pain increased last night and into this morning also prompting her to come here for further evaluation management. [facility] Medical History Knee sprain Paroxysmal atrial fibrillation Postoperative atrial fibrillation (06/05/20) Left ventricular diastolic dysfunction Secondary pulmonary arterial hypertension Obesity Cellulitis of leg without foot, left Nonrheumatic aortic (valve) stenosis with insufficiency Essential (primary) hypertension Abnormal electrocardiogram Obstructive sleep apnea Hyperlipidemia Premature ventricular contractions Stasis dermatitis without varicosities Peripheral vascular occlusive disease Home Medications ?Medication ?Instructions ?Recorded ?Last Taken ?Type multivitamin with folic acid 400 1 tab PO DAILY 02/20/14 Unknown History mcg tablet atorvastatin 20 mg tablet 20 mg PO QHS 02/27/15 Unknown History cholecalciferol (vitamin D3) 25 1,000 unit PO BID 02/27/15 Unknown History mcg (1,000 unit) tablet cyanocobalamin (vitamin B-12) 500 250 mcg PO DAILY@0800 02/27/15 Unknown History mcg tablet omeprazole 20 mg capsule,delayed 20 mg PO DAILY 02/27/15 11/08/20 History release apixaban 5 mg tablet (Eliquis) 5 mg PO BID 09/13/20 11/08/20 History tramadol 50 mg tablet 50 mg PO DAILY Pain 12/11/21 Unknown History potassium chloride 10 mEq 10 meq PO DAILY 06/17/22 Unknown History tablet,extended release furosemide 40 mg tablet (Lasix) 40 mg PO Q OTHER DAY PRN edema, 07/14/23 Unknown Rx SOB #45 tabs hydrochlorothiazide 12.5 mg tablet 12.5 mg PO DAILY 07/14/23 Unknown History hydrochlorothiazide 25 mg tablet 25 mg PO DAILY 07/14/23 Unknown History meloxicam 7.5 mg tablet 7.5 mg PO DAILY PRN pain 07/14/23 Unknown History amlodipine 2.5 mg tablet 2.5 mg PO DAILY #90 tabs 03/16/24 Unknown Rx losartan 100 mg tablet 100 mg PO DAILY #90 tabs 03/16/24 Unknown Rx metoprolol tartrate 50 mg tablet 100 mg PO DAILY 03/16/24 Unknown History amiodarone 200 mg tablet See Rx Instructions .Route 05/31/24 Unknown Rx .COMPLEX #90 tabs Allergy/AdvReac Type Severity Reaction Status Date / Time captopril (From Capoten) Allergy Unknown Verified 08/31/24 11:13 diclofenac Allergy Unknown Verified 08/31/24 11:13 naproxen AdvReac Nausea Verified 08/31/24 11:13 Family History Father CVA (cerebral vascular accident) Hypertension Atrial fibrillation Congestive heart failure Mother , in her 90's, pt of Dr. Bianchi Hypertension CVA (cerebral vascular accident) Atrial fibrillation Congestive heart failure Brother , age 60 Atrial fibrillation Congestive heart failure Colon cancer Sister CAD (coronary artery disease) Sister , age 65 CAD (coronary artery disease) Hypertension S/P CABG (coronary artery bypass graft) History of heart valve replacement Sister Atrial fibrillation Other Family history of CVA Family history of hyperlipidemia Family history of hypertension Surgical History History of cardioversion (11/08/20) History of aortic valve replacement with bioprosthetic valve (06/05/20) History of hand surgery History of right hip replacement History of D&C History of tubal ligation History of left heart catheterization (05/01/20) Social History Smoking Status: Never smoker alcohol intake: current substance use type: does not use caffeine: Yes Type: carbonated beverages Number of servings: 1 ROS ROS ED ROS Narrative Constitutional: Denies any fevers, chills, headaches, lightness, dizziness Eyes: Denies change in vision double vision blurry vision Cardiovascular: Denies chest pain palpitation Respiratory: Denies coughing wheezing shortness of breath Abdomen: Complains of abdominal pain as well as nausea denies vomiting and complains of bright red blood per rectum as noted above denies any black dark tarry stools : Denies any pain phonation, hematuria compel area Neurological: Denies any numbness, weakness, tingling Musculoskeletal: Denies any back pain Skin: Denies any rashes or lesions EXAM Physical Exam Narrative Exam Narrative: General: Patient lying in bed rest comfortably did not appear to be acute distress Head: Atraumatic, normocephalic Eyes: PERRL bilateral, EOMI biotic no conjunctival injection noted Neck: Soft, nondistended, nontender to palpation, bowel sounds present x 4 Cardiovascular: Regular rate and rhythm no murmurs gallops rubs noted Respiratory: Clear to auscultation bilaterally no rales rhonchi wheezes noted Abdomen: Patient has tenderness palpation left lower quadrant and in the suprapubic region no rebound or guarding on exam Extremities: +5/5 strength noted in the bilateral upper and lower extremities, no pedal edema exam, radial pulses +2/4 in the bilateral extremities Neurological: Patient was following commands knew that she was at [facility] years 2023 Skin: Warm, dry, intact Const Vital Signs: 08/31/24 11:14 08/31/24 13:11 08/31/24 14:55 Temperature 97.1 F L Temperature Source Temporal Pulse Rate 67 71 63 Respiratory Rate 14 14 14 Blood Pressure 162/96 H 159/69 H 141/73 H Blood Pressure Mean 118 99 95 Pulse Ox 98 94 95 Oxygen Delivery Method Room Air Room Air Room Air MDM MDM MDM Narrative Medical decision making narrative: Patient is a 78-year-old female who presents to the emergency department with a chief complaint of abdominal pain nausea and bright red blood per rectum on Eliquis. Patient will have a workup performed here on the differential diagnose includes but limited to diverticulosis, hemorrhoids, UTI, viral gastroenteritis. Once workup is obtained reviewed she will be reevaluated. Patient's CBC was reviewed and showed no evidence leukocytosis white blood count normal at 6.3, hemoglobin 11, platelet count was noted be normal at 256. Patient's INR was 1.7, PT of 19.4 she is on Eliquis, sodium normal 136, potassium was low at 3 she was given 40 mill equivalents of oral supplementation here, creatinine normal at 1. Patient's AST and ALT were 24 and 16 respectively total bilirubin is elevated 1.10. Patient's lipase normal at 24. Patient's urinalysis was reviewed and showed no evidence of infection. Patient's abdomen CTA abdomen pelvis with contrast was reviewed and showed distended gallbladder with findings suggestive layering gallstones or sludge along the dependent portion of the gallbladder lumen. No evidence of active bleeding at this point time. Did rectal exam and she did have a small amount of blood noted on exam mixed with brown stool. Repeat abdominal exam patient does have significant tenderness palpation of the right upper quadrant I will reach out to general surgery to discuss with them. Rectal exam was Hemoccult positive identified on stool study. Called and discussed the case with Dr. Saenz who reviewed the CT scan and that he would recommend getting ultrasound of the right upper quadrant which was ordered. I had discussion with the patient and family member bedside given that she is having bright red blood per rectum and significant abdominal pain while on Eliquis if her ultrasound is normal family member and patient would prefer observation for a lower GI bleed while on Eliquis. Patient's ultrasound is pending at this point time therefore case will be signed out to oncoming provider to make ultimate disposition see his note for further details Lab Data Labs: Laboratory Results - last 24 hr 08/31/24 08/31/24 11:52 12:05 WBC 6.3 RBC 3.35 L Hgb 11.0 L Hct 32.9 L MCV 98.2 MCH 32.8 H MCHC 33.4 RDW Std Deviation 47.5 H RDW Coeff of [place] 13.2 Plt Count 256 MPV 8.9 Immature Gran % (Auto) 0.500 Neut % (Auto) 81.8 H Lymph % (Auto) 7.3 L [place] % (Auto) 9.9 Eos % (Auto) 0.2 Baso % (Auto) 0.3 Absolute Neuts (auto) 5.2 Absolute Lymphs (auto) 0.46 L Nucleated RBC % 0 PT 19.4 H INR 1.7 APTT 33.6 Sodium 136 Potassium 3.0 L Chloride 98 Carbon Dioxide 31.0 Anion Gap 7 BUN 16 Creatinine 1.00 Estim Creat Clear Calc 54.10 Est GFR (MDRD) Af Amer 69 Est GFR (MDRD) Non-Af 57 L BUN/Creatinine Ratio 16.0 Glucose 99 Calcium 9.0 Total Bilirubin 1.10 H AST 24 ALT 16 Alkaline Phosphatase 74 Total Protein 6.5 Albumin 3.3 Globulin 3.2 Albumin/Globulin Ratio 1.0 Lipase 24 Urine Color Yellow Urine Clarity Clear Urine pH 7.0 Ur Specific [place] 1.005 Urine Protein Negative Urine Glucose (UA) Normal Urine Ketones Negative Urine Occult Blood 10 H Urine Nitrite Negative Urine Bilirubin Negative Urine Urobilinogen Normal Ur Leukocyte Esterase Negative Urine RBC 0 SEEN Urine WBC 0 SEEN Ur Squamous Epith Cells 0 SEEN Urine Bacteria RARE Urine Mucus 0 SEEN Radiography Diagnostic Testing: Clinical Impression(s) from Imaging Studies Abdomen/Pelvis CTA 08/31/24 11:49 IMPRESSION: Distended gallbladder with findings suggestive of layering gallstones or sludge along the dependent portion of the gallbladder lumen. No evidence of active bleeding at this time. Electronically Signed: Jake Yan MD at 13:31 EST , Discharge Plan Triage Chief Complaint: Abd Pain ED Provider: Jean Aldrich Dx/Rx/DC Orders Clinical Impression: Abdominal pain, Acute lower GI bleeding Prescriptions: No Action Eliquis 5 mg tablet 5 mg PO BID potassium chloride 10 mEq tablet extended release 10 meq PO DAILY metoprolol tartrate 50 mg tablet 100 mg PO DAILY hydrochlorothiazide 12.5 mg tablet 12.5 mg PO DAILY Rx Instructions: Take with 25 mg tab to = 37.5 mg daily meloxicam 7.5 mg tablet 7.5 mg PO DAILY PRN (Reason: pain) furosemide [Lasix] 40 mg tablet 40 mg PO Q OTHER DAY PRN (Reason: edema, SOB) Qty: 45 3RF amlodipine 2.5 mg tablet 2.5 mg PO DAILY Qty: 90 3RF losartan 100 mg tablet 100 mg PO DAILY Qty: 90 3RF multivitamin with folic acid 1 TABLET tablet 1 tab PO DAILY Patient Comments: SUPPLEMENT hydrochlorothiazide 25 mg tablet 25 mg PO DAILY Patient Comments: BP Rx Instructions: Take with 12.5 mg tab to = 37.5 mg daily atorvastatin 20 MG tablet 20 mg PO QHS Patient Comments: CHOLESTEROL cyanocobalamin (vitamin B-12) 500 MCG tablet 250 mcg PO DAILY@0800 Patient Comments: SUPPLEMENT omeprazole 20 MG capsule 20 mg PO DAILY Patient Comments: GERD cholecalciferol (vitamin D3) 1,000 UNIT tablet 1,000 unit PO BID Patient Comments: SUPPLEMENT tramadol 50 mg tablet 50 mg PO DAILY Patient Comments: PAIN amiodarone 200 mg tablet See Rx Instructions .ROUTE .COMPLEX Qty: 90 3RF Dose Instruction: TAKE 1 TABLET EVERY DAY Rx Instructions: TAKE 1 TABLET EVERY DAY Primary Care Provider: Hanna Rodriguez Referrals: Hanna Rodriguez MD [Primary Care Provider] - Print Language: Polish
[2024-08-31 12:20] LABS: Absolute Lymphocyte Count 0.46 X10^3/uL (0.83-4.51); Absolute Neutrophil Count 5.2 X10^3/uL (2.0-7.7); Basophil# 0.02 X10^3/uL; Basophil% 0.3 % (0-1); Eosinophil# 0.01 X10^3/uL; Eosinophils% 0.2 % (0-5); Hematocrit 32.9 % (37-47); Lymphocyte # 0.46 X10^3/ul (0.83-4.51); Lymphocyte % 7.3 % (19-41); Mean Corp Hgb Conc 33.4 g/dL (32-36); Mean Corpuscular Hgb 32.8 pg (27.0-32.0); Mean Corpuscular Volume 98.2 fL (81-99); Mean Platelet Vol. 8.9 fl (6.2-12.0); Monocyte# 0.62 X10^3/uL; Monocyte% 9.9 % (0-10); NRBC Flagged by Analyzer 0 % (0-5); Neutrophil # 5.15 X10^3/uL (2.7-7.7); Neutrophil % 81.8 % (47-70); POSITIVE DIFFERENTIAL YES; Platelet Count 256 K/mm3 (150-450); RBC Distribution Width CV 13.2 % (11.6-14.6); RBC Distribution Width SD 47.5 fl (35.1-43.9); Red Blood Count 3.35 M/mm3 (4.2-5.4); White Blood Count 6.3 K/mm3 (4.4-11.0)
[2024-08-31 12:30] LABS: International Normalized Ratio 1.7; Prothrombin Time (Protime)PT. 19.4 SECONDS (11.7-14.9)
[2024-08-31 12:31] LABS: Partial Thromboplast Time 33.6 Seconds (24.1-36.2)
[2024-08-31 12:36] LABS: AST(SGOT) 24 U/L (15-37); Alanine Aminotransfer ALT/SGPT 16 U/L (13-56); Albumin, Serum 3.3 g/dL (3.2-5.0); Alkaline Phosphatase 74 U/L (45-117); Anion Gap 7 (5-15); BUN 16 mg/dL (7-18); Chloride 98 mmol/L (98-107); EST Glomerular Filtration Rate 57 mL/min (>60); Est Glom Filt Rate - Afr Amer 69 mL/min (>60); Globulin 3.2 g/dL (2.2-4.2); Glucose 99 mg/dL (74-106); Lipase 24 U/L (13-75); Protein, Total 6.5 g/dL (6.4-8.2); Sodium Level 136 mmol/L (136-145)
--- NOTE | 2024-08-31 14:25 | ED.RN ---
CALLED [facility] REGARDING KCL, WE DO NOT HAVE THAT IN THE ED.
--- NOTE | 2024-08-31 14:35 | US_ITS ---
STUDY: ABDOMINAL ULTRASOUND - RIGHT UPPER QUADRANT REASON FOR VISIT: Female, 78 years old ruq pain TECHNIQUE: Ultrasound evaluation of the right upper quadrant was performed with real-time and static gonzalez-scale imaging. TECHNICAL QUALITY: Adequate. COMPARISON: None. FINDINGS: Liver: The liver measures 15.6 cm. There is normal echogenicity of the liver. The bile ducts are within normal limits. There is hepatic color flow. The direction of portal flow is hepatopetal. There is no demonstrated mass lesion. Gallbladder: Normal distended gallbladder. The gallbladder wall measures 4 mm. There is a negative sonographic Melendez''s sign. There is no pericholecystic fluid. There are no gallstones. Common Bile Duct (C.B.D.): The common bile duct measures 8 mm. Pancreas: Normal size of the head, body and tail of the pancreas. There is normal echogenicity of the pancreas. There is no demonstrated pancreatic mass or cyst. Right Kidney: Normal size of the right kidney. The right kidney measures 10.3 x 4.4 x 4.7 cm. Normal renal cortex. The right cortex measures 1.4 cm. There is no demonstrated renal mass or cyst. There is no right hydronephrosis. US/Gallbladder IMPRESSION: Mildly thick gallbladder with sludge but no shadowing stones or evidence for acute cholecystitis Electronically Signed: Odin Morrow MD at 16:57 EST ,
[2024-08-31] MEDS: Potassium Chloride Oral Soln 20 MEQ/15 ML UDC 40 MEQ PO (14:37)
[2024-08-31 18:13] LABS: Hematocrit 31.1 % (37-47); Hemoglobin 10.2 g/dL (12.0-15.0); Mean Corp Hgb Conc 32.8 g/dL (32-36); Mean Corpuscular Hgb 32.3 pg (27.0-32.0); Mean Corpuscular Volume 98.4 fL (81-99); Mean Platelet Vol. 8.8 fl (6.2-12.0); Platelet Count 238 K/mm3 (150-450); RBC Distribution Width CV 13.1 % (11.6-14.6); RBC Distribution Width SD 46.8 fl (35.1-43.9); Red Blood Count 3.16 M/mm3 (4.2-5.4); White Blood Count 6.8 K/mm3 (4.4-11.0)
--- NOTE | 2024-08-31 18:45 | PCM.HP.STD ---
HPI - General General Date of Admission: 08/31/24 Date of Service: 08/31/24 Chief Complaint: Abdominal pain with bright red blood in stools HPI Narrative RAFIA SANCHEZ, is a 78 F who presented to [facility] ED on 08/31/2024 with abdominal pain and bright red blood in stools. Patient reported 2-day history of worsening abdominal pain and difficulty with having bowel movements. She stated that for a few days she had difficulty with having a bowel movement which is not normal for her. She was able to have a bowel movement this morning but she had some bright red blood noted in the stool. She then subsequently had 3 more episodes of bright red blood with mucus consistency stool. Has never had blood in the stool like this before. She notably has history of A-fib and is on Eliquis. Initially went to urgent care but with her symptoms and history advised her to come to the ED. On arrival here she was hypertensive to the 160s systolic but otherwise hemodynamically stable on room air. Hemoglobin was 11.0, unclear baseline as last hemoglobin values were from over 4 years ago. Otherwise had potassium 3.0 but labs were otherwise unremarkable. CTA abdomen pelvis showed distended gallbladder with findings suggestive of layering gallstones or sludge, no evidence of active bleeding. ED physician discussed with general surgery on-call who recommended gallbladder ultrasound for further evaluation. Ultrasound showed mildly thickened gallbladder with sludge but no shadowing stones or evidence for acute cholecystitis. Patient did have some improvement in abdominal pain over the course of her ED stay without any intervention. She did not have any further bowel movements here but did have a stool occult test done that was positive. Repeat hemoglobin was obtained about 6 hours after the first one and showed slight downtrend to 10.2. Patient and family were concerned about her going home given risk of recurrent bloody stools while on Eliquis, so hospitalist was contacted for admission. I saw the patient at bedside in the ED, daughter was present. Patient was sitting up comfortably in bed, conversing normally, in no acute distress. Stated her abdominal pain was very mild at this time. She had just eaten a snack that had been provided for her in the ED and had no issues with keeping this down. She stated that eating the snack helped her feel better. She denied any other pain or discomfort. No other acute concerns. Will be admitted for further management. [facility] Medical History (Updated 08/31/24 @ 21:[address] Rodrigue German, DO) Rheumatoid arthritis Osteoporosis GI bleed Non-smoker Atrial fibrillation Chest pain Hypertension Knee sprain Paroxysmal atrial fibrillation Postoperative atrial fibrillation (06/05/20) Left ventricular diastolic dysfunction Secondary pulmonary arterial hypertension Obesity Cellulitis of leg without foot, left Nonrheumatic aortic (valve) stenosis with insufficiency Essential (primary) hypertension Abnormal electrocardiogram Obstructive sleep apnea Hyperlipidemia Premature ventricular contractions Stasis dermatitis without varicosities Peripheral vascular occlusive disease Home Medications ?Medication ?Instructions ?Recorded ?Last Taken ?Type multivitamin with folic acid 400 1 tab PO DAILY 02/20/14 Unknown History mcg tablet atorvastatin 20 mg tablet 20 mg PO QHS 02/27/15 Unknown History cholecalciferol (vitamin D3) 25 1,000 unit PO BID 02/27/15 Unknown History mcg (1,000 unit) tablet cyanocobalamin (vitamin B-12) 500 250 mcg PO DAILY@0800 02/27/15 Unknown History mcg tablet omeprazole 20 mg capsule,delayed 20 mg PO DAILY 02/27/15 11/08/20 History release apixaban 5 mg tablet (Eliquis) 5 mg PO BID 09/13/20 11/08/20 History tramadol 50 mg tablet 50 mg PO DAILY Pain 12/11/21 Unknown History potassium chloride 10 mEq 10 meq PO DAILY 06/17/22 Unknown History tablet,extended release furosemide 40 mg tablet (Lasix) 40 mg PO Q OTHER DAY PRN edema, 07/14/23 Unknown Rx SOB #45 tabs hydrochlorothiazide 12.5 mg tablet 12.5 mg PO DAILY 07/14/23 Unknown History hydrochlorothiazide 25 mg tablet 25 mg PO DAILY 07/14/23 Unknown History meloxicam 7.5 mg tablet 7.5 mg PO DAILY PRN pain 07/14/23 Unknown History amlodipine 2.5 mg tablet 2.5 mg PO DAILY #90 tabs 03/16/24 Unknown Rx losartan 100 mg tablet 100 mg PO DAILY #90 tabs 03/16/24 Unknown Rx metoprolol tartrate 50 mg tablet 100 mg PO DAILY 03/16/24 Unknown History amiodarone 200 mg tablet See Rx Instructions .Route 05/31/24 Unknown Rx .COMPLEX #90 tabs acetaminophen 500 mg tablet 1,000 mg PO Q6H PRN pain 08/31/24 Unknown History (Acetaminophen Extra Strength) Allergy/AdvReac Type Severity Reaction Status Date / Time captopril (From Capoten) Allergy Unknown Verified 08/31/24 11:13 diclofenac Allergy Unknown Verified 08/31/24 11:13 naproxen AdvReac Nausea Verified 08/31/24 11:13 Family History Father CVA (cerebral vascular accident) Hypertension Atrial fibrillation Congestive heart failure Mother , in her 90's, pt of Dr. Bianchi Hypertension CVA (cerebral vascular accident) Atrial fibrillation Congestive heart failure Brother , age 60 Atrial fibrillation Congestive heart failure Colon cancer Sister CAD (coronary artery disease) Sister , age 65 CAD (coronary artery disease) Hypertension S/P CABG (coronary artery bypass graft) History of heart valve replacement Sister Atrial fibrillation Other Family history of CVA Family history of hyperlipidemia Family history of hypertension Surgical History History of cardioversion (11/08/20) History of aortic valve replacement with bioprosthetic valve (06/05/20) History of hand surgery History of right hip replacement History of D&C History of tubal ligation History of left heart catheterization (05/01/20) Social History Smoking Status: Never smoker alcohol intake: current substance use type: does not use caffeine: Yes Type: carbonated beverages Number of servings: 1 ROS Constitutional Constitutional: Denies chills, fatigue, fever(s) or weakness Eyes Eyes: Denies change in vision Cardiovascular Cardiovascular: Denies chest pain Respiratory/Chest Respiratory/Chest: Denies cough, shortness of breath at rest or shortness of breath with exertion Gastrointestinal Gastrointestinal: Reports abdominal pain, hematochezia and nausea; Denies constipation or vomiting Genitourinary Genitourinary: Denies dysuria Vital Signs Vital Signs Vital Signs: 08/31/24 11:14 08/31/24 13:11 08/31/24 14:55 Temperature 97.1 F L Temperature Source Temporal Pulse Rate 67 71 63 Respiratory Rate 14 14 14 Blood Pressure 162/96 H 159/69 H 141/73 H Blood Pressure Mean 118 99 95 Pulse Ox 98 94 95 Oxygen Delivery Method Room Air Room Air Room Air 08/31/24 16:10 08/31/24 18:00 Temperature Temperature Source Pulse Rate 70 79 Respiratory Rate 18 18 Blood Pressure 132/83 H 132/78 H Blood Pressure Mean 99 96 Pulse Ox 97 98 Oxygen Delivery Method Room Air Weight Weight: 93.5 kg Body Mass Index (BMI) 34.2 Physical Exam Const alert, oriented x3 and no apparent distress Constitutional Narrative: Elderly female, class I obesity, sitting up comfortably in bed, conversing normally, in no acute distress. General Appearance: cooperative and comfortable HEENT normocephalic, head/scalp atraumatic, hearing grossly normal bilaterally, nasal mucous membranes and turbinates normal and moist oral mucous membranes Eyes PERRL, EOMs intact bilaterally and conjunctivae normal Neck full ROM Chest inspection of chest normal Resp normal respiratory effort, normal air movement, no use of accessory muscles and clear to auscultation bilaterally Cardio regular rate, regular rhythm, no murmurs and peripheral pulses 2+ throughout GI normal to inspection, nondistended, normoactive bowel sounds, soft to palpation, non-tender and non-distended Back/Spine normal ROM Extremity normal to inspection, full ROM and no pedal edema Skin no rashes or lesions noted Psych mental status grossly normal Results Lab / Micro Data 08/31/24 18:00 08/31/24 12:05 Labs: Laboratory Results - last 24 hr 08/31/24 11:52: Urine Color Yellow, Urine Clarity Clear, Urine pH 7.0, Ur Specific [place] 1.005, Urine Protein Negative, Urine Glucose (UA) Normal, Urine Ketones Negative, Urine Occult Blood 10 H, Urine Nitrite Negative, Urine Bilirubin Negative, Urine Urobilinogen Normal, Ur Leukocyte Esterase Negative, Urine RBC 0 SEEN, Urine WBC 0 SEEN, Ur Squamous Epith Cells 0 SEEN, Urine Bacteria RARE, Urine Mucus 0 SEEN 08/31/24 12:05: WBC 6.3, RBC 3.35 L, Hgb 11.0 L, Hct 32.9 L, MCV 98.2, MCH 32.8 H, MCHC 33.4, RDW Std Deviation 47.5 H, RDW Coeff of [place] 13.2, Plt Count 256, MPV 8.9, Immature Gran % (Auto) 0.500, Neut % (Auto) 81.8 H, Lymph % (Auto) 7.3 L, [place] % (Auto) 9.9, Eos % (Auto) 0.2, Baso % (Auto) 0.3, Absolute Neuts (auto) 5.2, Absolute Lymphs (auto) 0.46 L, Nucleated RBC % 0, PT 19.4 H, INR 1.7, APTT 33.6, Sodium 136, Potassium 3.0 L, Chloride 98, Carbon Dioxide 31.0, Anion Gap 7, BUN 16, Creatinine 1.00, Estim Creat Clear Calc 54.10, Est GFR (MDRD) Af Amer 69, Est GFR (MDRD) Non-Af 57 L, BUN/Creatinine Ratio 16.0, Glucose 99, Calcium 9.0, Total Bilirubin 1.10 H, AST 24, ALT 16, Alkaline Phosphatase 74, Total Protein 6.5, Albumin 3.3, Globulin 3.2, Albumin/Globulin Ratio 1.0, Lipase 24 08/31/24 18:00: WBC 6.8, RBC 3.16 L, Hgb 10.2 L, Hct 31.1 L, MCV 98.4, MCH 32.3 H, MCHC 32.8, RDW Std Deviation 46.8 H, RDW Coeff of [place] 13.1, Plt Count 238, MPV 8.8 Micro: Microbiology 08/31/24 14:21 Stool Stool Occult Blood (TANJA) - Final Occult Blood Positive Imaging Radiology Impression Abdomen/Pelvis CTA 08/31/24 11:49 IMPRESSION: Distended gallbladder with findings suggestive of layering gallstones or sludge along the dependent portion of the gallbladder lumen. No evidence of active bleeding at this time. Electronically Signed: Jake Yan MD at 13:31 EST , Gallbladder Ultrasound 08/31/24 14:35 IMPRESSION: Mildly thick gallbladder with sludge but no shadowing stones or evidence for acute cholecystitis Electronically Signed: Odin Morrow MD at 16:57 EST , Assessment & Plan Assessment/Plan (1) Hematochezia: (2) Abdominal pain: PLAN: Plan Patient is a 68-year-old female who presented [facility] ED on 08/31/2024 with abdominal pain and bright red blood in stools. 1. Hematochezia with concern for mild acute blood loss anemia ? Admit under observation status to [facility]. Hemoglobin 11.0 with slight drop to 10.[address] abdomen pelvis with IV contrast showed no active signs of bleeding. Suspect mild bleed possibly from hemorrhoids. Given no further bleeds while in the ED and patient remaining in A-fib throughout her time in the ED today, will opt to continue home Eliquis. Follow-up a.m. CBC. If patient has no further bloody bowel movements and is stable tomorrow, will be okay for discharge home. 2. Abdominal pain ? Unclear etiology. CT abdomen pelvis showed concern for possible gallbladder etiology but gallbladder ultrasound was negative for acute cholecystitis. Abdominal pain was resolving on its own and patient tolerating a diet without issue. 3. Paroxysmal A-fib on Eliquis ? Follows with outpatient cardiology. EKG in the ED showed rate controlled A-fib. On my exam patient remained in rate controlled A-fib. Continue home amiodarone, Lopressor and Eliquis. Chronic medical conditions: ? Class I obesity: BMI 34 on admit. Complicates hospital course, care and prognosis. ? History of aortic valve replacement, hypertension, hyperlipidemia: Follows with cardiology as noted above. Continue home statin, losartan and hydrochlorothiazide. ? Chronic pain: Checked OARRS and patient does fill tramadol regularly. Continue tramadol once daily as needed. ? GERD: Continue home PPI. DVT prophylaxis: Not indicated, on Eliquis CODE STATUS: Full code, verified Expected disposition: Home, 1 to 2 days Total clinical time spent by myself addressing the patient's medical issues, reviewing all the data, and collaborating with patient's care team: 55 minutes. Charges/Coding Visit Charges Inpatient E&M: 43437 Init Hosp L2
--- NOTE | 2024-08-31 19:04 | CASEMGMT ---
Care Management Face to Face with patient for initial transition planning/care coordination assessment.? This advertising copywriter introduced self and role at [facility]. Patient lying in bed, alert and oriented. Patient willing to participate in assessment and is able to answer all questions appropriately, patients daughter at bedside and permission given for her to participate in assessment.? ?Care providers, pharmacy, and demographics verified. Admitting Diagnosis: ?Abdominal pain Other diagnosis history: rheumatoid arthritis, osteoporosis, hypertension PCP: Dr. Hanna Rodriguez Specialists: Dr. Sumner, Pain management [facility]acy[facility] Insurance: ?[employer] Prescription Benefit:? yes Living Will/HPOA: Patient has both a HPOA and Living Will, daughter asked to bring in copy when able LNOK: Lisa Segal, Daughter Living Arrangements: Patient lives by herself in a condo.? No stairs to enter or inside. Patient able to complete all ADLs, does own laundry, cooking and cleaning.?? Transportation: Patient drives and has reliable transportation DME: has a cane, 2 rollators, grab bars in the shower and by one toilet, shower bench and raised toilet seat. HHC: No preference, used once 20 years ago. SNF/Rehab: None Community Resources: None Behavioral Health History:? None Patient goals: [place] list provided due to patient wanting an apartment that is income based.? Patients states current condo is safe and patient plans to DC home when able.?? ?Patient also requesting information for utility assistance, [place] card provided.? ?Patient states she has no further needs or concerns at this time. Disposition Plan: CM to follow for discharge planning needs that may arise.? Lisa Wright, REGIONAL HR MANAGER, COMPUTATIONAL BIOLOGIST
[2024-08-31 19:26] LABS: Magnesium 1.6 mg/dL (1.6-2.6); Phosphorus 3.2 mg/dL (2.5-4.9)
[2024-08-31] MEDS: 0.9% Normal Saline (1000mL) 1,000 ML 999 ML IV (19:27)
[2024-08-31] MEDS: Cholecalciferol (VIT D3) 25 MCG TABLET (1,000 UNITS) PO (22:18)
[2024-08-31] MEDS: APIXABAN 5 MG TABLET PO (22:18)
[2024-08-31] MEDS: Atorvastatin Calcium 20 MG Tablet PO (22:18)
[2024-09-01 04:01] VITALS: BP 127/80; PULSE 69; RESP 16; TEMP 36.6; O2SAT 100
[2024-09-01 05:37] LABS: Hematocrit 30.5 % (37-47); Hemoglobin 10.2 g/dL (12.0-15.0); Mean Corp Hgb Conc 33.4 g/dL (32-36); Mean Corpuscular Hgb 32.8 pg (27.0-32.0); Mean Corpuscular Volume 98.1 fL (81-99); Mean Platelet Vol. 9.4 fl (6.2-12.0); Platelet Count 251 K/mm3 (150-450); RBC Distribution Width CV 13.3 % (11.6-14.6); RBC Distribution Width SD 47.8 fl (35.1-43.9); Red Blood Count 3.11 M/mm3 (4.2-5.4); White Blood Count 5.3 K/mm3 (4.4-11.0)
[2024-09-01 06:15] LABS: Anion Gap 6 (5-15); BUN 11 mg/dL (7-18); BUN/Creat Ratio 12.3 RATIO (10-20); Chloride 100 mmol/L (98-107); Creatinine, Serum 0.89 mg/dL (0.55-1.02); EST Glomerular Filtration Rate 65 mL/min (>60); Est Glom Filt Rate - Afr Amer 79 mL/min (>60); Estimated Creatinine Clearance 60.58 ml/min; Glucose 91 mg/dL (74-106); Potassium 2.7 mmol/L (3.5-5.1); Sodium Level 139 mmol/L (136-145)
[2024-09-01] MEDS: Potassium Chloride Oral Tablet 20 MEQ 40 MEQ PO (06:36)
[2024-09-01 08:17] VITALS: BP 137/74; PULSE 65; RESP 18; TEMP 36.4; O2SAT 96
[2024-09-01] MEDS: Potassium Chloride Oral Tablet 10 MEQ PO (08:27)
[2024-09-01] MEDS: Amiodarone 200 MG Tablet PO (08:28)
[2024-09-01] MEDS: Cyanocobalamin 500 MCG Tablet 250 MCG PO (08:28)
[2024-09-01] MEDS: Losartan Potassium 100 MG Tablet PO (08:28)
[2024-09-01 08:29] VITALS: PULSE 65
[2024-09-01] MEDS: Metoprolol Tartrate 100 MG Tablet PO (08:29)
[2024-09-01] MEDS: hydroCHLOROthiazide 12.5mg 37.5 MG PO (08:29)
[2024-09-01] MEDS: APIXABAN 5 MG TABLET PO (08:29)
[2024-09-01] MEDS: Pantoprazole Sodium 20 MG Tablet PO (08:30)
[2024-09-01] MEDS: Cholecalciferol (VIT D3) 25 MCG TABLET (1,000 UNITS) PO (08:30)
[2024-09-01] MEDS: amLODIPine 2.5 MG Tablet PO (08:30)
--- NOTE | 2024-09-01 08:59 | DCINST_ITS ---
Discharge Instructions Diet Discharge Diet: Low fat / Low cholesterol DC O2, CPAP, BIPAP needs Additional Home O2 Discharge instructions: No Dressing / Incision Discharge Activity: Return to Normal Activity Dressing / Incision Call your doctor if you observe: Fever of 101 or Higher, Shortness of breath, Dizziness, Fainting spells, Swelling in the ankles, Chest pain and Increased palpitations (irregular heartbeat) Follow Up Care Test Results: Test results from this visit will be discussed in further detail at your follow- up appointment, if applicable. Discharge Plan Admission Admit Date/Time: 08/31/24 18:48 Attending Provider: Truong Murcia Primary Care Provider: Hanna Rodriguez Consulting Providers: Rodrigue German Additional Instructions / Restrictions: Follow-up with your PCP in 3 to 5 days to monitor your hemoglobin as well as your potassium Discharge Orders/Prescriptions Prescriptions: Continued potassium chloride 10 mEq tablet extended release 10 meq PO DAILY metoprolol tartrate 50 mg tablet 100 mg PO DAILY hydrochlorothiazide 12.5 mg tablet 12.5 mg PO DAILY Rx Instructions: Take with 25 mg tab to = 37.5 mg daily meloxicam 7.5 mg tablet 7.5 mg PO DAILY PRN (Reason: pain) furosemide [Lasix] 40 mg tablet 40 mg PO Q OTHER DAY PRN (Reason: edema, SOB) Qty: 45 3RF amlodipine 2.5 mg tablet 2.5 mg PO DAILY Qty: 90 3RF losartan 100 mg tablet 100 mg PO DAILY Qty: 90 3RF multivitamin with folic acid 1 TABLET tablet 1 tab PO DAILY Patient Comments: SUPPLEMENT hydrochlorothiazide 25 mg tablet 25 mg PO DAILY Patient Comments: BP Rx Instructions: Take with 12.5 mg tab to = 37.5 mg daily atorvastatin 20 MG tablet 20 mg PO QHS Patient Comments: CHOLESTEROL cyanocobalamin (vitamin B-12) 500 MCG tablet 250 mcg PO DAILY@0800 Patient Comments: SUPPLEMENT omeprazole 20 MG capsule 20 mg PO DAILY Patient Comments: GERD cholecalciferol (vitamin D3) 1,000 UNIT tablet 1,000 unit PO BID Patient Comments: SUPPLEMENT tramadol 50 mg tablet 50 mg PO DAILY Patient Comments: PAIN acetaminophen [Acetaminophen Extra Strength] 500 mg tablet 1,000 mg PO Q6H PRN (Reason: pain) amiodarone 200 mg tablet See Rx Instructions .ROUTE .COMPLEX Qty: 90 3RF Dose Instruction: TAKE 1 TABLET EVERY DAY Rx Instructions: TAKE 1 TABLET EVERY DAY Held Eliquis 5 mg tablet 5 mg PO BID Hold Instructions: Resume on 09/04/24. Referrals / Follow Up: Hanna Rodriguez MD [Primary Care Provider] - Within 1 Week FriendGerson DO [Med Staff - Active Staff] - Within 1 Week Disposition Disposition (needs filled in before D/C Order can be placed): Home, Self Care
[2024-09-01 09:03] VITALS: BP 125/70; PULSE 80; RESP 18; TEMP 36.6; O2SAT 96
[2024-09-01] MEDS: 0.9% Normal Saline (100mL Bag) 100 ML 15 ML IV (10:27)
[2024-09-01] MEDS: 0.9% Saline Lock 10 ML Syringe IV (10:27)
[2024-09-01] MEDS: Magnesium Sulfate 2 GM in Dextrose 5%-Water (100mL Bag) 100 ML IV (10:27)
--- NOTE | 2024-09-01 11:38 | PCM.DC.SUM ---
Providers Date of Admission: 08/31/24 Primary Care Physician: Dr. Hanna Rodriguez MD Reason For Visit: MILD LOWER GI BLEED ON ELIQUIS Diagnosis Discharge Diagnosis (1) Hematochezia: Status: Acute Code(s): K92.1 - Melena (2) Abdominal pain: Status: Acute Code(s): R10.9 - Unspecified abdominal pain Medications at Discharge Home Medications multivitamin with folic acid 400 mcg tablet 1 tab PO DAILY 02/20/14 atorvastatin 20 mg tablet 20 mg PO QHS 02/27/15 cholecalciferol (vitamin D3) 25 mcg (1,000 unit) tablet 1,000 unit PO BID 02/27/15 cyanocobalamin (vitamin B-12) 500 mcg tablet 250 mcg PO DAILY@0800 02/27/15 omeprazole 20 mg capsule,delayed release 20 mg PO DAILY 02/27/15 apixaban 5 mg tablet (Eliquis) 5 mg PO BID 09/13/20 tramadol 50 mg tablet 50 mg PO DAILY Pain 12/11/21 potassium chloride 10 mEq tablet,extended release 10 meq PO DAILY 06/17/22 furosemide 40 mg tablet (Lasix) 40 mg PO Q OTHER DAY PRN edema, SOB #45 tabs 07/14/23 hydrochlorothiazide 12.5 mg tablet 12.5 mg PO DAILY 07/14/23 hydrochlorothiazide 25 mg tablet 25 mg PO DAILY 07/14/23 meloxicam 7.5 mg tablet 7.5 mg PO DAILY PRN pain 07/14/23 amlodipine 2.5 mg tablet 2.5 mg PO DAILY #90 tabs 03/16/24 losartan 100 mg tablet 100 mg PO DAILY #90 tabs 03/16/24 metoprolol tartrate 50 mg tablet 100 mg PO DAILY 03/16/24 amiodarone 200 mg tablet See Rx Instructions .Route .COMPLEX #90 tabs 05/31/24 acetaminophen 500 mg tablet (Acetaminophen Extra Strength) 1,000 mg PO Q6H PRN pain 08/31/24 Hospital Course Operations None Procedures None Summary of Care Provided Minutes Spent on Discharge: 33 Hospital Course: Per HPI: RAFIA SANCHEZ, is a 78 F who presented to [facility] ED on 08/31/2024 with abdominal pain and bright red blood in stools. Patient reported 2-day history of worsening abdominal pain and difficulty with having bowel movements. She stated that for a few days she had difficulty with having a bowel movement which is not normal for her. She was able to have a bowel movement this morning but she had some bright red blood noted in the stool. She then subsequently had 3 more episodes of bright red blood with mucus consistency stool. Has never had blood in the stool like this before. She notably has history of A-fib and is on Eliquis. Initially went to urgent care but with her symptoms and history advised her to come to the ED. On arrival here she was hypertensive to the 160s systolic but otherwise hemodynamically stable on room air. Hemoglobin was 11.0, unclear baseline as last hemoglobin values were from over 4 years ago. Otherwise had potassium 3.0 but labs were otherwise unremarkable. CTA abdomen pelvis showed distended gallbladder with findings suggestive of layering gallstones or sludge, no evidence of active bleeding. ED physician discussed with general surgery on-call who recommended gallbladder ultrasound for further evaluation. Ultrasound showed mildly thickened gallbladder with sludge but no shadowing stones or evidence for acute cholecystitis. Patient did have some improvement in abdominal pain over the course of her ED stay without any intervention. She did not have any further bowel movements here but did have a stool occult test done that was positive. Repeat hemoglobin was obtained about 6 hours after the first one and showed slight downtrend to 10.2. Patient and family were concerned about her going home given risk of recurrent bloody stools while on Eliquis, so hospitalist was contacted for admission. I saw the patient at bedside in the ED, daughter was present. Patient was sitting up comfortably in bed, conversing normally, in no acute distress. Stated her abdominal pain was very mild at this time. She had just eaten a snack that had been provided for her in the ED and had no issues with keeping this down. She stated that eating the snack helped her feel better. She denied any other pain or discomfort. No other acute concerns. Will be admitted for further management. Hospital Course: 1. Hematochezia with abdominal pain/GERD?78-year-old female presented to the hospital with bright red blood per rectum. She is on Eliquis so she was concerned. She is on Eliquis for A-fib. CT of the abdomen was unremarkable and ultrasound of the right upper quadrant was negative for acute cholecystitis. My time of evaluation on admission her abdominal pain was resolving and she was tolerating a diet. Hemoglobin went from around 11 down to 10.2, recheck this morning was also 10.2. I discussed with her the possibility for discharge today and she expressed understanding of the risk benefits going home and would like to go home today. We discussed indications to return to the hospital and I recommend that she follow-up with gastroenterology as an outpatient within the next couple of days. Also her potassium was little bit low today and she is on oral replacement at home, I indicated to her that she could potentially double up on her pills for a couple of days, she will had her potassium replaced this morning and also her magnesium prior to discharge. I recommend that she follow-up with her PCP in 3 to 5 days to monitor her hemoglobin as well as her potassium. She is on hydrochlorothiazide 37.5 mg daily, I do recommend holding the hydrochlorothiazide 25 mg tablet for couple of days. I discussed the need to hold Eliquis for a few days and the risk of stroke, for which she expressed understanding. 2. Essential hypertension, hyperlipidemia, paroxysmal A-fib are all chronic medical conditions that complicate her care. Her home medications were continued where appropriate Physical Exam Narrative General: Alert, Oriented x3, Cooperative, No apparent distress HEENT: Atraumatic, PERRLA, EOMI, Normocephalic Oral: Moist Mucosa Neck: Supple, No JVD Lungs: Clear to auscultation, Normal air movement, No rhonchi, No wheeze, No rales Cardiovascular: Regular rate, Regular Rhythm, Normal S1, Normal S2, No murmurs Abdomen: Soft, Non Tender, Non-Distended, No Hepato-splenomegaly Extremities: No edema, Capillary Refill Less than 3 Seconds Skin: No rashes, No breakdown Musculoskeletal: No Tenderness to Palpation of Joints or Extremities Neurological: No focal neurological deficits, Motor Exam 5/5 strength throughout, Sensory exam intact to light touch and pain Psych/Mental Status: Normal Affect, Appropriate Weight / BMI Weight Weight: 204 lb 12.951 oz Body Mass Index (BMI) 34.0 ABG / Lab / Microbiology Data 09/01/24 04:18 09/01/24 04:18 Laboratory: Laboratory Results - last 24 hr 08/31/24 11:52: Urine Color Yellow, Urine Clarity Clear, Urine pH 7.0, Ur Specific Loyal 1.005, Urine Protein Negative, Urine Glucose (UA) Normal, Urine Ketones Negative, Urine Occult Blood 10 H, Urine Nitrite Negative, Urine Bilirubin Negative, Urine Urobilinogen Normal, Ur Leukocyte Esterase Negative, Urine RBC 0 SEEN, Urine WBC 0 SEEN, Ur Squamous Epith Cells 0 SEEN, Urine Bacteria RARE, Urine Mucus 0 SEEN 08/31/24 12:05: WBC 6.3, RBC 3.35 L, Hgb 11.0 L, Hct 32.9 L, MCV 98.2, MCH 32.8 H, MCHC 33.4, RDW Std Deviation 47.5 H, RDW Coeff of [place] 13.2, Plt Count 256, MPV 8.9, Immature Gran % (Auto) 0.500, Neut % (Auto) 81.8 H, Lymph % (Auto) 7.3 L, [place] % (Auto) 9.9, Eos % (Auto) 0.2, Baso % (Auto) 0.3, Absolute Neuts (auto) 5.2, Absolute Lymphs (auto) 0.46 L, Nucleated RBC % 0, PT 19.4 H, INR 1.7, APTT 33.6, Sodium 136, Potassium 3.0 L, Chloride 98, Carbon Dioxide 31.0, Anion Gap 7, BUN 16, Creatinine 1.00, Estim Creat Clear Calc 54.10, Est GFR (MDRD) Af Amer 69, Est GFR (MDRD) Non-Af 57 L, BUN/Creatinine Ratio 16.0, Glucose 99, Calcium 9.0, Phosphorus 3.2, Magnesium 1.6, Total Bilirubin 1.10 H, AST 24, ALT 16, Alkaline Phosphatase 74, Total Protein 6.5, Albumin 3.3, Globulin 3.2, Albumin/Globulin Ratio 1.0, Lipase 24 08/31/24 18:00: WBC 6.8, RBC 3.16 L, Hgb 10.2 L, Hct 31.1 L, MCV 98.4, MCH 32.3 H, MCHC 32.8, RDW Std Deviation 46.8 H, RDW Coeff of [place] 13.1, Plt Count 238, MPV 8.8 09/01/24 04:18: WBC 5.3, RBC 3.11 L, Hgb 10.2 L, Hct 30.5 L, MCV 98.1, MCH 32.8 H, MCHC 33.4, RDW Std Deviation 47.8 H, RDW Coeff of [place] 13.3, Plt Count 251, MPV 9.4, Sodium 139, Potassium 2.7 L*, Chloride 100, Carbon Dioxide 33.0 H, Anion Gap 6, BUN 11, Creatinine 0.89, Estim Creat Clear Calc 60.58, Est GFR (MDRD) Af Amer 79, Est GFR (MDRD) Non-Af 65, BUN/Creatinine Ratio 12.3, Glucose 91, Calcium 9.0 Microbiology: Microbiology 08/31/24 14:21 Stool Stool Occult Blood (TANJA) - Final Occult Blood Positive Radiography Diagnostic Testing: Radiology Impression Abdomen/Pelvis CTA 08/31/24 11:49 IMPRESSION: Distended gallbladder with findings suggestive of layering gallstones or sludge along the dependent portion of the gallbladder lumen. No evidence of active bleeding at this time. Electronically Signed: Jake Yan MD at 13:31 EST , Gallbladder Ultrasound 08/31/24 14:35 IMPRESSION: Mildly thick gallbladder with sludge but no shadowing stones or evidence for acute cholecystitis Electronically Signed: Odin Morrow MD at 16:57 EST , D/C Instructions Discharge Diet: Low fat / Low cholesterol Call your doctor if you observe: Fever of 101 or Higher, Shortness of breath, Dizziness, Fainting spells, Swelling in the ankles, Chest pain and Increased palpitations (irregular heartbeat) DC O2, CPAP, BIPAP Needs Additional Home O2 Discharge instructions: No DC home with Oxygen: No Meaningful Use Info Meaningful Use Meaningful Use Diagnoses (Choose all that apply): None applicable Ischemic Stroke Statin Dosing Therapy Reference: STATIN DOSE THERAPY REFERENCE: * Patients > 75 years receive moderate or high dose statin therapy. * Patients 75 years or YOUNGER should receive HIGH intensity statin dose unless contraindicated. You will be required to document reason for non-treatment if statin daily dose does not meet guidelines. HIGH DOSE STATIN THERAPY DAILY Atorvastatin > than or = to 40 mg Rosuvastatin > than or = to 20 mg Amlodipine + Atorvastatin > than or = to 2.5/40 mg Ezetimibe + Simvastatin 10/80 mg Simvastatin 80mg Discharge Plan Admission Admit Date/Time: 08/31/24 18:48 Attending Provider: Truong Murcia Primary Care Provider: Hanna Rodriguez Consulting Providers: Rodrigue German Additional Instructions / Restrictions: Follow-up with your PCP in 3 to 5 days to monitor your hemoglobin as well as your potassium Discharge Orders/Prescriptions Prescriptions: Continued potassium chloride 10 mEq tablet extended release 10 meq PO DAILY metoprolol tartrate 50 mg tablet 100 mg PO DAILY hydrochlorothiazide 12.5 mg tablet 12.5 mg PO DAILY Rx Instructions: Take with 25 mg tab to = 37.5 mg daily meloxicam 7.5 mg tablet 7.5 mg PO DAILY PRN (Reason: pain) furosemide [Lasix] 40 mg tablet 40 mg PO Q OTHER DAY PRN (Reason: edema, SOB) Qty: 45 3RF amlodipine 2.5 mg tablet 2.5 mg PO DAILY Qty: 90 3RF losartan 100 mg tablet 100 mg PO DAILY Qty: 90 3RF multivitamin with folic acid 1 TABLET tablet 1 tab PO DAILY Patient Comments: SUPPLEMENT atorvastatin 20 MG tablet 20 mg PO QHS Patient Comments: CHOLESTEROL cyanocobalamin (vitamin B-12) 500 MCG tablet 250 mcg PO DAILY@0800 Patient Comments: SUPPLEMENT omeprazole 20 MG capsule 20 mg PO DAILY Patient Comments: GERD cholecalciferol (vitamin D3) 1,000 UNIT tablet 1,000 unit PO BID Patient Comments: SUPPLEMENT tramadol 50 mg tablet 50 mg PO DAILY Patient Comments: PAIN acetaminophen [Acetaminophen Extra Strength] 500 mg tablet 1,000 mg PO Q6H PRN (Reason: pain) amiodarone 200 mg tablet See Rx Instructions .ROUTE .COMPLEX Qty: 90 3RF Dose Instruction: TAKE 1 TABLET EVERY DAY Rx Instructions: TAKE 1 TABLET EVERY DAY Held Eliquis 5 mg tablet 5 mg PO BID Hold Instructions: Resume on 09/04/24. hydrochlorothiazide 25 mg tablet 25 mg PO DAILY Hold Instructions: Resume on 09/04/24. Patient Comments: BP Rx Instructions: Take with 12.5 mg tab to = 37.5 mg daily Referrals / Follow Up: Hanna Rodriguez MD [Primary Care Provider] - Within 1 Week Friend,Gerson, DO [Med Staff - Active Staff] - Within 1 Week Disposition Disposition (needs filled in before D/C Order can be placed): Home, Self Care Charges/Coding Visit Charges Inpatient E&M: 82878 Disch Hosp >30min
[2024-09-01] MEDS: traMADol 50 MG Tablet PO (12:57)
--- NOTE | 2024-09-01 13:36 | PHA.DC.MR.R ---
Pharmacy [place] Med Reconciliation Pharmacy Service has performed discharge medication reconciliation for this patient. The patient's discharge medication list was reviewed for discrepancies and discrepancies were resolved. Medications at Discharge Home Medications multivitamin with folic acid 400 mcg tablet 1 tab PO DAILY 02/20/14 atorvastatin 20 mg tablet 20 mg PO QHS 02/27/15 cholecalciferol (vitamin D3) 25 mcg (1,000 unit) tablet 1,000 unit PO BID 02/27/15 cyanocobalamin (vitamin B-12) 500 mcg tablet 250 mcg PO DAILY@0800 02/27/15 omeprazole 20 mg capsule,delayed release 20 mg PO DAILY 02/27/15 apixaban 5 mg tablet (Eliquis) 5 mg PO BID 09/13/20 tramadol 50 mg tablet 50 mg PO DAILY Pain 12/11/21 potassium chloride 10 mEq tablet,extended release 10 meq PO DAILY 06/17/22 furosemide 40 mg tablet (Lasix) 40 mg PO Q OTHER DAY PRN edema, SOB #45 tabs 07/14/23 hydrochlorothiazide 12.5 mg tablet 12.5 mg PO DAILY 07/14/23 hydrochlorothiazide 25 mg tablet 25 mg PO DAILY 07/14/23 meloxicam 7.5 mg tablet 7.5 mg PO DAILY PRN pain 07/14/23 amlodipine 2.5 mg tablet 2.5 mg PO DAILY #90 tabs 03/16/24 losartan 100 mg tablet 100 mg PO DAILY #90 tabs 03/16/24 metoprolol tartrate 50 mg tablet 100 mg PO DAILY 03/16/24 amiodarone 200 mg tablet See Rx Instructions .Route .COMPLEX #90 tabs 05/31/24 acetaminophen 500 mg tablet (Acetaminophen Extra Strength) 1,000 mg PO Q6H PRN pain 08/31/24
== END 2024-09-01 13:41 | disposition home or self-care (01) ==
LOC: ED 17:54 → MS3 21:54
PROVIDERS: Admitting Provider Hospitalist; Emergency Provider Emergency Medicine; PCP Internal Medicine; Visit Provider Family Medicine
DX: K92.1 Melena (principal); I27.21 Secondary pulmonary arterial hypertension; I48.0 Paroxysmal atrial fibrillation; I10 Essential (primary) hypertension; Z79.01 Long term (current) use of anticoagulants; K21.9 Gastro-esophageal reflux disease without esophagitis; Z68.34 Body mass index [BMI] 34.0-34.9, adult; E78.5 Hyperlipidemia, unspecified; G89.29 Other chronic pain; E66.811 Obesity, class 1; G47.33 Obstructive sleep apnea (adult) (pediatric); Z79.899 Other long term (current) drug therapy; Z95.2 Presence of prosthetic heart valve
CPT/HCPCS: 36415; 74174; 76705; 80048; 80053; 81001; 82274; 83690; 83735; 84100; 85014; 85018; 85025; 85027; 85610; 85730; 93005; 94668; 96360; 99221; 99284; Q9967; A4216; G0378

== ENCOUNTER → 2024-11-19 | Outpatient (CLI) | payer MEDICARE, SELFPAY ==
--- NOTE | 2024-11-19 14:12 | RAD_ITS ---
PROCEDURE: CHEST PA AND LATERAL REASON FOR EXAM: Shortness of breath. TECHNIQUE: Frontal and lateral views of the chest. COMPARISON: Comparison is made with prior study dated April 26, 2020. FINDINGS: Mild enlargement of the heart. Prior mitral valve replacement. Increased interstitial markings in both lungs worse at the lung bases suggestive of scarring. Minimal vascular congestion. Tortuosity of the descending thoracic aorta. Osteopenia of the visualized vertebrae with vertebroplasty of the L2 vertebrae. Loss of height of the T11 vertebrae. RAD/Chest PA and Lateral IMPRESSION: Findings suggestive of chronic interstitial fibrosis with mild degree of superi mposed edema. Reading Location: [facility]
[2024-11-19 14:18] LABS: Absolute Lymphocyte Count 0.67 X10^3/uL (0.83-4.51); Absolute Neutrophil Count 3.9 X10^3/uL (2.0-7.7); Basophil# 0.05 X10^3/uL; Basophil% 0.9 % (0-1); Eosinophil# 0.04 X10^3/uL; Eosinophils% 0.8 % (0-5); Hematocrit 27.5 % (37-47); Hemoglobin 8.8 g/dL (12.0-15.0); Lymphocyte # 0.67 X10^3/ul (0.83-4.51); Lymphocyte % 12.6 % (19-41); Mean Corpuscular Hgb 30.4 pg (27.0-32.0); Mean Corpuscular Volume 95.2 fL (81-99); Mean Platelet Vol. 9.3 fl (6.2-12.0); Monocyte# 0.66 X10^3/uL; Monocyte% 12.4 % (0-10); NRBC Flagged by Analyzer 0 % (0-5); Neutrophil # 3.87 X10^3/uL (2.7-7.7); Neutrophil % 72.9 % (47-70); Platelet Count 326 K/mm3 (150-450); RBC Distribution Width CV 14.6 % (11.6-14.6); RBC Distribution Width SD 51.2 fl (35.1-43.9); Red Blood Count 2.89 M/mm3 (4.2-5.4); White Blood Count 5.3 K/mm3 (4.4-11.0)
[2024-11-19 15:42] LABS: Amphetamine Urine NEGATIVE (<1000 ng/mL); Barbiturate Urine NEGATIVE (< 200 ng/mL); Benzodiazepine Urine NEGATIVE (< 200 ng/mL); Buprenorphine Urine NEGATIVE (< 200 ng/mL); Cocaine Urine NEGATIVE (< 300 ng/mL); Fentanyl, Urine NEGATIVE; Methadone Urine NEGATIVE (< 300 ng/mL); Opiates Urine NEGATIVE (< 300 ng/mL); Oxycodone, Urine NEGATIVE (< 100 ng/mL); PCP Urine NEGATIVE (< 25 ng/mL); THC Urine NEGATIVE (< 50 ng/mL)
[2024-11-19 15:45] LABS: Anion Gap 13 (5-15); BUN 15 mg/dL (4-19); BUN/Creat Ratio 17.1 RATIO (10-20); Calcium 8.7 mg/dL (7.6-11.0); Carbon Dioxide 23.6 mmol/L (22.0-29.0); Chloride 99 mmol/L (96-108); Creatinine, Serum 0.86 mg/dL (0.70-1.20); EST Glomerular Filtration Rate 70 (>60); Glucose 95 mg/dL (70-99); Potassium 3.5 mmol/L (3.3-5.1); Pro- Brain NATRIURETIC PEPTIDE 3221 pg/mL (<=1800); Sodium Level 135 mmol/L (133-145)
== END | disposition home or self-care (01) ==
PROVIDERS: Nurse Practitioner Family; PCP Internal Medicine; Referring Provider Anesthesiology Pain Medicine; Visit Provider Anesthesiology Pain Medicine
DX: F11.20 Opioid dependence, uncomplicated (principal); M79.89 Other specified soft tissue disorders; R06.02 Shortness of breath; I35.2 Nonrheumatic aortic (valve) stenosis with insufficiency; Z79.01 Long term (current) use of anticoagulants; Z79.899 Other long term (current) drug therapy; Z95.3 Presence of xenogenic heart valve
CPT/HCPCS: 36415; 71046; 80048; 80307; 83880; 85025

== ENCOUNTER → 2024-12-08 | Outpatient (CLI) | payer MEDICARE, SELFPAY ==
--- NOTE | 2024-12-08 06:54 | ECHOD_ITS ---
Reason For Study Reason For Study: SOB Procedure This was a 2D Doppler, Color Flow transthoracic echocardiogram. The study was technically difficult. Exam performed in department. Left Ventricle Normal LV size. Mild concentric left ventricular hypertrophy. The left ventricular ejection fraction is 50 %. No regional wall motion abnormalities noted. Right Ventricle Normal RV size. Normal systolic function. Atria The left atrium is moderately enlarged. The right atrium is moderately enlarged. Mitral Valve Normal mitral valve. Mild (1+) eccentric mitral valve insufficiency. Tricuspid Valve Normal tricuspid valve. Moderate (2+) tricuspid valve insufficiency. Pulmonary artery systolic pressure is 45 mmHg. Aortic Valve Peak aortic valve gradient 14 mmHg. Mean aortic valve gradient 7 mmHg. Bioprosthetic aortic valve. Great Vessels Normal aortic root. The pulmonary artery is normal size. The inferior vena cava is dilated. Pericardium/Pleural No pericardial effusion. MMode/2D Measurements & Calculations LVIDd: 5.1 cm IVSd: 1.2 cm LVOT diam: 1.9 cm LVIDs: 3.6 cm LVPWd: 1.2 cm LVOT area: 3.0 cm2 RVDd: 3.7 cm FS: 30.3 % LAV(MOD-bp): 87.6 ml LVAd ap4: 33.0 cm2 LVAd ap2: 26.9 cm2 LAV(MOD-bp) Indexed: 42.0 ml/m2 LVLd ap4: 7.8 cm LVLd ap2: 8.0 cm LAV(MOD-sp2): 85.2 ml EDV(MOD-sp4): 118.0 ml EDV(MOD-sp2): 74.3 ml LAV(MOD-sp4): 85.8 ml EDV(sp4-el): 119.3 ml EDV(sp2-el): 76.9 ml LVAs ap4: 20.4 cm2 LVAs ap2: 17.8 cm2 LVLs ap4: 6.1 cm LVLs ap2: 7.3 cm ESV(MOD-sp4): 60.1 ml ESV(MOD-sp2): 35.8 ml ESV(sp4-el): 58.4 ml ESV(sp2-el): 36.8 ml EF(MOD-sp4): 49.1 % EF(MOD-sp2): 51.9 % EF(sp4-el): 51.0 % SV(MOD-sp4): 57.9 ml SV(MOD-sp2): 38.5 ml SV(sp4-el): 60.9 ml SI(MOD-sp4): 27.8 ml/m2 SI(MOD-sp2): 18.5 ml/m2 LA A4 area: 26.2 cm2 LA dimension(2D): 5.5 cm RA A4 area: 28.2 cm2 TAPSE: 1.8 cm Time Measurements MV dec time: 0.19 sec Doppler Measurements & Calculations MV E max gopi: 127.3 cm/sec Lat Peak E' Gopi: 14.3 cm/sec Med Peak E' Gopi: 8.9 cm/sec MV A max gopi: 39.2 cm/sec E/E' lat: 8.9 E/E' med: 14.3 MV E/A: 3.3 MV V2 max: 117.1 cm/sec MV P1/2t max gopi: 113.2 cm/sec Ao V2 max: 189.4 cm/sec MV max P.5 mmHg MV P1/2t: 63.9 msec Ao max P.4 mmHg MV V2 mean: 48.5 cm/sec Ao V2 mean: 122.3 cm/sec MV mean P.2 mmHg MV dec slope: 518.7 cm/sec2 Ao mean P.9 mmHg MV V2 VTI: 38.4 cm MVA(P1/2t): 3.4 cm2 Ao V2 VTI: 37.2 cm AV (velocity ratio): 0.43 MVA(VTI): 1.2 cm2 LAVONNE(I,D): 1.3 cm2 LAVONNE(V,D): 1.3 cm2 AI max gopi: 478.6 cm/sec LV V1 max: 84.6 cm/sec MR max gopi: 516.4 cm/sec AI max P.6 mmHg LV V1 max P.9 mmHg MR max P.7 mmHg AI dec slope: 315.4 cm/sec2 LV V1 mean P.5 mmHg MR mean gopi: 396.8 cm/sec AI P1/2t: 444.5 msec LV V1 mean: 56.7 cm/sec MR mean P.7 mmHg LV V1 VTI: 15.8 cm MR VTI: 191.5 cm SV(LVOT): 46.7 ml PA V2 max: 87.7 cm/sec TR max gopi: 310.1 cm/sec TR max P.5 mmHg ECHO/Echo Complete Interpretation Summary Normal LV size. Mild concentric left ventricular hypertrophy. The left ventricular ejection fraction is 50 %. Pulmonary artery systolic pressure is 45 mmHg. Mean aortic valve gradient 7 mmHg. Bioprosthetic aortic valve. Ordering Physician: Rob Gan Referring Physician: Hanna Rodriguez Performed By: Theresa Michelle RDCS, RVT
== END | disposition home or self-care (01) ==
LOC: CVS 06:54
PROVIDERS: PCP Internal Medicine; Referring Provider Nurse Practitioner Family; Visit Provider Nurse Practitioner Family
DX: I35.2 Nonrheumatic aortic (valve) stenosis with insufficiency (principal); I10 Essential (primary) hypertension; Z95.3 Presence of xenogenic heart valve
CPT/HCPCS: 93306

== ENCOUNTER → 2024-12-27 | Outpatient (CLI) | payer MEDICARE, SELFPAY | END | disposition home or self-care (01) | PROVIDERS: PCP Internal Medicine; Referring Provider Nurse Practitioner Acute Care; Visit Provider Nurse Practitioner Acute Care | DX: R09.02 Hypoxemia (principal) | CPT/HCPCS: 94762 ==

== ENCOUNTER → 2025-01-12 | Outpatient (CLI) | payer MEDICARE, SELFPAY | END | disposition home or self-care (01) | PROVIDERS: PCP Internal Medicine; Referring Provider Nurse Practitioner Acute Care; Visit Provider Nurse Practitioner Acute Care | DX: R06.02 Shortness of breath (principal) | CPT/HCPCS: 94060; 94726; 94729 ==

== ENCOUNTER → 2025-01-17 | Outpatient (CLI) | payer MEDICARE, SELFPAY ==
[2025-01-17 15:22] LABS: Rheumatoid Factor < 10.0 IU/mL (<15)
[2025-01-18 10:08] LABS: ANTINUCLEAR ANTIBODIES DIRECT Negative (Negative)
[2025-01-18 15:08] LABS: CCP IgG Antibodies 9 units (0-19); Cytoplasmic Ab (C-ANCA) <1:20 titer (Neg:<1:20); Perinuclear Ab (P-ANCA) <1:20 titer (Neg:<1:20)
== END | disposition home or self-care (01) ==
LOC: LAB 11:46
PROVIDERS: PCP Internal Medicine; Referring Provider Nurse Practitioner Acute Care; Visit Provider Nurse Practitioner Acute Care
DX: R06.02 Shortness of breath (principal)
CPT/HCPCS: 36415; 86037; 86038; 86200; 86225; 86235; 86431

== ENCOUNTER 2025-09-05 09:54 | Emergency (ER) | payer MEDICARE, SELFPAY ==
[2025-09-05 09:55] VITALS: BP 173/96; PULSE 85; RESP 18; TEMP 36.2; O2SAT 100
[2025-09-05 09:56] VITALS: BMI 33.7
--- NOTE | 2025-09-05 10:29 | ED.VIS.BACK ---
HPI History of Present Illness Chief Complaint: Back Narrative Narrative: Chief complaint and HPI: 79-year-old female with past medical history of chronic back pain in which she follows with pain management, HTN, HLD, proximal atrial fibrillation on Eliquis presents for evaluation of back pain. Patient states that she periodically gets spinal injections, the last 1 being in June as well as is on tramadol for her back pain. She states for the past several weeks she has been having increased back pain which she describes as crampy and tight. She thinks it is likely her muscles. She states she has an appointment with pain management soon. She denies any fever, chills, shortness of breath, chest pain, abdominal pain, nausea, vomiting, dysuria, constipation. She states the back pain feels similar to her previous back pain but is more crampy in nature. There has been no trauma or injury. Denies numbness, weakness, urinary retention, stool or urinary incontinence, saddle anesthesia. She ambulates with a walker. Review of systems: See HPI Medications: As listed on the chart Allergies: As listed on the chart PFSH: Per chart Vital signs: As listed on the chart. Reviewed. Physical exam: Gen: A&O x3, NAD Head: Normocephalic, atraumatic Eyes: No sclera icterus, conjunctiva clear ENT: Moist mucous membranes Neck: Trachea midline, nontender, full range of motion CV: RRR, no murmurs, no peripheral edema Resp: Lungs CTA BL, no w/r/c GI: Abd soft, non-distended, non-tender, no r/r/g : No CVA tenderness Musc: Full ROM, no deformity, strength +5/5 in all extremities, DP/PT pulses +2 bilaterally, no midline spinal tenderness, no bony step-offs, mild tenderness to palpation of the paraspinal musculature of the lower thoracic and entire lumbar spine bilaterally-this recreates her pain, no external signs of trauma or infection, no saddle paresthesia Skin: Warm, dry Neuro: Alert, oriented, grossly intact, sensation intact Psych: Cooperative, appropriate mood and affect [facility] Medical History Wears glasses Post-menopausal Walker as ambulation aid Arthritis High cholesterol CPAP (continuous positive airway pressure) dependence Sleep apnea GERD (gastroesophageal reflux disease) History of edema History of Holter monitoring History of echocardiogram Cardiology follow-up encounter History of atrial fibrillation Rheumatoid arthritis Osteoporosis GI bleed Non-smoker Atrial fibrillation Chest pain Hypertension Knee sprain Paroxysmal atrial fibrillation Postoperative atrial fibrillation (06/05/20) Left ventricular diastolic dysfunction Secondary pulmonary arterial hypertension Obesity Cellulitis of leg without foot, left Nonrheumatic aortic (valve) stenosis with insufficiency Essential (primary) hypertension Abnormal electrocardiogram Obstructive sleep apnea Hyperlipidemia Premature ventricular contractions Stasis dermatitis without varicosities Peripheral vascular occlusive disease Home Medications ?Medication ?Instructions ?Recorded ?Last Taken ?Type multivitamin with folic acid 400 1 tab PO DAILY 02/20/14 09/05/25 History mcg tablet atorvastatin 20 mg tablet 20 mg PO QHS 02/27/15 09/04/25 History cholecalciferol (vitamin D3) 25 1,000 unit PO BID 02/27/15 09/05/25 History mcg (1,000 unit) tablet cyanocobalamin (vitamin B-12) 500 250 mcg PO DAILY@0800 02/27/15 09/05/25 History mcg tablet omeprazole 20 mg capsule,delayed 20 mg PO DAILY 02/27/15 09/05/25 History release apixaban 5 mg tablet (Eliquis) 5 mg PO BID 09/13/20 09/05/25 History tramadol 50 mg tablet 50 mg PO DAILY Pain 12/11/21 09/05/25 History acetaminophen 500 mg tablet 1,000 mg PO Q6H PRN pain 08/31/24 09/04/25 History (Acetaminophen Extra Strength) potassium chloride 10 mEq 10 meq PO BID 09/30/24 09/05/25 History tablet,extended release spironolactone 25 mg tablet 25 mg PO DAILY #30 tabs 11/19/24 09/04/25 Rx losartan 100 mg tablet 100 mg PO DAILY #90 tabs 01/05/25 09/05/25 Rx albuterol sulfate 90 mcg/actuation 2 inh inhalation Q4H PRN shortness 01/24/25 Unknown Rx aerosol inhaler (Ventolin HFA) of breath or wheezing #18 grams metoprolol tartrate 50 mg tablet 50 mg PO BID 01/24/25 09/05/25 History furosemide 40 mg tablet (Lasix) 40 mg PO QAM edema, SOB #90 tabs 02/07/25 09/04/25 Rx ferrous sulfate 325 mg (65 mg 325 mg PO DAILY 09/05/25 09/05/25 History iron) tablet (Feosol) Allergy/AdvReac Type Severity Reaction Status Date / Time captopril (From [place]) Allergy Unknown Verified 09/05/25 09:55 diclofenac Allergy Unknown Verified 09/05/25 09:55 naproxen AdvReac Nausea Verified 09/05/25 09:55 Family History Father CVA (cerebral vascular accident) Hypertension Atrial fibrillation Congestive heart failure Mother , in her 90's, pt of Dr. Bianchi Hypertension CVA (cerebral vascular accident) Atrial fibrillation Congestive heart failure Brother , age 60 Atrial fibrillation Congestive heart failure Colon cancer Sister CAD (coronary artery disease) Sister , age 65 CAD (coronary artery disease) Hypertension S/P CABG (coronary artery bypass graft) History of heart valve replacement Sister Atrial fibrillation Other Family history of CVA Family history of hyperlipidemia Family history of hypertension Surgical History History of cardiac catheterization History of esophagogastroduodenoscopy (EGD) History of colonoscopy History of cardioversion (11/08/20) History of aortic valve replacement with bioprosthetic valve (06/05/20) History of hand surgery History of right hip replacement History of D&C History of tubal ligation History of left heart catheterization (05/01/20) Social History Smoking Status: Never smoker alcohol intake: current substance use type: does not use caffeine: Yes Type: carbonated beverages Number of servings: 1 EXAM Physical Exam Const Vital Signs: 09/05/25 09:55 09/05/25 11:54 Temperature 97.1 F L Temperature Source Temporal Pulse Rate 85 80 Respiratory Rate 18 16 Blood Pressure 173/96 H Blood Pressure Mean 121 Pulse Ox 100 Oxygen Delivery Method Room Air MDM MDM MDM Narrative Medical decision making narrative: 79-year-old female with past medical history of chronic back pain in which she follows with pain management, HTN, HLD, proximal atrial fibrillation on Eliquis presents for evaluation of back pain. Patient states that she periodically gets spinal injections, the last 1 being in June as well as is on tramadol for her back pain. She states for the past several weeks she has been having increased back pain which she describes as crampy and tight. She thinks it is likely her muscles. She states she has an appointment with pain management soon. On presentation, patient no acute distress. Vitals are normal other than hypertension which patient has a history of. She states she took her medicine today. See physical exam findings. There has been no trauma or injury. There is nothing to suggest any infectious etiology. There is no neurological findings to suggest an acute cauda equina syndrome or acute radiculopathy. At this point in time I do not feel any emergent imaging such as x-rays or MRI are warranted. Given her age and that she states this is slightly more crampy than normal we will obtain basic labs and a urine to rule out other pathologies such as electrolyte abnormality or UTI. Differential diagnosis includes but is not limited to myofascial spasm versus back strain. We did discuss the risks and benefits to muscle relaxers. She is willing to take a very low-dose muscle relaxer at this time. Cyclobenzaprine ordered. Will give IV Toradol, lidocaine Patch, and Zofran as Toradol may cause nausea. CBC with leukopenia of 4.2 and anemia of 11.3. Platelets unremarkable. This is similar to previous labs. BMP relatively unremarkable. UA negative for UTI. On reevaluation, patient's back pain is improved. She was able to ambulate to the bathroom without difficulty. Patient symptoms are likely secondary to acute on chronic back pain. Will give low-dose muscle relaxer and Lidoderm patch for home. Follow-up with pain management. She confirmed understand the plan. Patient will discharge home. Impression: 1. Acute on chronic back pain Lab Data Labs: Laboratory Results - last 24 hr 09/05/25 09/05/25 10:35 11:47 WBC 4.2 L RBC 3.38 L Hgb 11.3 L Hct 33.2 L MCV 98.2 MCH 33.4 H MCHC 34.0 RDW Std Deviation 46.4 H RDW Coeff of [place] 12.8 Plt Count 201 MPV 8.8 Immature Gran % (Auto) 0.200 Neut % (Auto) 77.7 H Lymph % (Auto) 11.5 L Jenkins % (Auto) 8.6 Eos % (Auto) 1.0 Baso % (Auto) 1.0 Absolute Neuts (auto) 3.3 Absolute Lymphs (auto) 0.48 L Nucleated RBC % 0 Sodium 138 Potassium 4.2 Chloride 103 Carbon Dioxide 26.0 Anion Gap 9 BUN 24 H Creatinine 1.17 Estim Creat Clear Calc 45.13 L Est GFR (MDRD) Non-Af 48 L BUN/Creatinine Ratio 20.1 H Glucose 92 Calcium 9.4 Urine Color Yellow Urine Clarity Clear Urine pH 7.0 Ur Specific [place] 1.005 Urine Protein Negative Urine Glucose (UA) Normal Urine Ketones Negative Urine Occult Blood 10 H Urine Nitrite Negative Urine Bilirubin Negative Urine Urobilinogen Normal Ur Leukocyte Esterase 100 H Urine RBC 0 SEEN Urine WBC 0 SEEN Ur Squamous Epith Cells 0-5 SEEN Ur Transition Epith Cell 0-5 SEEN Urine Bacteria 0 SEEN Urine Mucus 0 SEEN Discharge Plan Triage Chief Complaint: Back ED Provider: Rober Marcos Dx/Rx/DC Orders Prescriptions: No Action Eliquis 5 mg tablet 5 mg PO BID potassium chloride 10 mEq tablet extended release 10 meq PO BID spironolactone 25 mg tablet 25 mg PO DAILY Qty: 30 11RF metoprolol tartrate 50 mg tablet 50 mg PO BID albuterol sulfate [Ventolin HFA] 90 mcg/actuation HFA aerosol inhaler 2 inh inhalation Q4H PRN (Reason: shortness of breath or wheezing) Qty: 18 11RF multivitamin with folic acid 1 TABLET tablet 1 tab PO DAILY Patient Comments: SUPPLEMENT atorvastatin 20 MG tablet 20 mg PO QHS Patient Comments: CHOLESTEROL cyanocobalamin (vitamin B-12) 500 MCG tablet 250 mcg PO DAILY@0800 Patient Comments: SUPPLEMENT omeprazole 20 MG capsule 20 mg PO DAILY Patient Comments: GERD cholecalciferol (vitamin D3) 1,000 UNIT tablet 1,000 unit PO BID Patient Comments: SUPPLEMENT tramadol 50 mg tablet 50 mg PO DAILY Patient Comments: PAIN acetaminophen [Acetaminophen Extra Strength] 500 mg tablet 1,000 mg PO Q6H PRN (Reason: pain) ferrous sulfate [Feosol] 325 mg (65 mg iron) tablet 325 mg PO DAILY losartan 100 mg tablet 100 mg PO DAILY Qty: 90 3RF furosemide [Lasix] 40 mg tablet 40 mg PO QAM Qty: 90 3RF Primary Care Provider: Hanna Rodriguez Referrals: Hanna Rodriguez MD [Primary Care Provider, Internal Medicine] Print Language: Italian
[2025-09-05 10:45] LABS: Hematocrit 33.2 % (37-47); Hemoglobin 11.3 g/dL (12.0-15.0); Immature Granulocytes Count 0.010 X10^3/uL (0.0-0.0); Mean Corp Hgb Conc 34.0 g/dL (32-36); Mean Corpuscular Volume 98.2 fL (81-99); Mean Platelet Vol. 8.8 fl (6.2-12.0); NRBC Flagged by Analyzer 0 % (0-5); POSITIVE DIFFERENTIAL YES; Platelet Count 201 K/mm3 (150-450); RBC Distribution Width CV 12.8 % (11.6-14.6); RBC Distribution Width SD 46.4 fl (35.1-43.9); Red Blood Count 3.38 M/mm3 (4.2-5.4); White Blood Count 4.2 K/mm3 (4.4-11.0)
[2025-09-05 11:12] LABS: Anion Gap 9 (5-15); BUN 24 mg/dL (4-19); BUN/Creat Ratio 20.1 RATIO (10-20); Calcium,Total 9.4 mg/dL (7.6-11.0); Carbon Dioxide 26.0 mmol/L (21.0-32.0); Chloride 103 mmol/L (98-108); Estimated Creatinine Clearance 45.13 ml/min (50-250); Glucose 92 mg/dL (70-99); Potassium 4.2 mmol/L (3.3-5.1)
[2025-09-05] MEDS: Lidocaine 5% Patch 1 PATCH TOPICAL (11:27)
[2025-09-05 11:52] LABS: Mucous, Urine 0 SEEN /hpf (<or=2+); Red Blood Cells-Urine 0 SEEN /hpf (0-5)
[2025-09-05 11:54] VITALS: PULSE 80; RESP 16
[2025-09-05 12:14] LABS: Color, Urine Yellow (Yellow); Glucose, Dipstick Normal (Normal); Ketone-Dipstick Negative (Negative); Leukocyte Esterase-Dipstick 100 /ul (Negative); Nitrite-Dipstick Negative (Negative); Occult Blood-Urine 10 /ul (Negative); Protein-Dipstick Negative (Negative); Specific Gravity, Urine 1.005 (1.002-1.030); Urine Bilirubin Dipstick Negative (Negative)
[2025-09-05 12:35] LABS: Squamous Epithelial Cells - UA 0-5 SEEN /hpf (5-10); Transitional Epithelial - Ur 0-5 SEEN /hpf (0-5)
[2025-09-05 13:14] VITALS: BP 144/80; PULSE 75; RESP 16; TEMP 36.4; O2SAT 100
== END 2025-09-05 13:19 | disposition home or self-care (01) ==
PROVIDERS: Emergency Provider Surgery; PCP Internal Medicine; Visit Provider Surgery
DX: M54.9 Dorsalgia, unspecified (principal); I48.0 Paroxysmal atrial fibrillation; G89.29 Other chronic pain; E78.00 Pure hypercholesterolemia, unspecified; Z79.01 Long term (current) use of anticoagulants; Z79.891 Long term (current) use of opiate analgesic; G47.30 Sleep apnea, unspecified; Z99.89 Dependence on other enabling machines and devices; Z79.899 Other long term (current) drug therapy; K21.9 Gastro-esophageal reflux disease without esophagitis; Z95.3 Presence of xenogenic heart valve; Z96.641 Presence of right artificial hip joint; Z98.51 Tubal ligation status; I10 Essential (primary) hypertension
CPT/HCPCS: 80048; 81001; 85025; 96374; 96375; 99283; A4216; J2405